=== PATIENT | female | born 1980 | race Caucasian/White ===

== ENCOUNTER 2019-03-25 09:18 | Emergency (ER) | payer BC, MEDICAID ==
[2019-03-25] MEDS ORDERED: PROMETHAZINE HCL INJ 25 MG/1 ML VIAL ONE (09:37)
[2019-03-25] MEDS ORDERED: NORMAL SALINE 1000 ML 1,000 ML IV ONE (09:40)
[2019-03-25] MEDS ORDERED: METOCLOPRAMIDE HCL INJ/PF 10 MG/2 ML SDV IV ONE (09:40)
[2019-03-25] MEDS ORDERED: FAMOTIDINE INJ/PF 20 MG/2 ML SDV IV ONE (09:41)
--- NOTE | 2019-03-25 10:18 | ER Document Report ---
Entered by FATUMA WALKER SCRIBE 03/25/19 0941 Acting as scribe for:CITLALI CHAND MD ED GI/ - General Chief Complaint: Vomiting Stated Complaint: VOMITING Time Seen by Provider: 03/25/19 09:33 Primary Care Provider: [facility] [Provider Group] - Follow up as needed GRETA MICHELLE MD [NO LOCAL MD] - Follow up as needed Mode of Arrival: Ambulatory Information source: Patient Notes: This 38-year-old female patient comes emergency room complaining of nausea vomiting with some diarrhea that started this morning. She has been nauseous that taking Diclegis, but states the nausea is much worse than usual today. She has been having dry heaves with bilious vomiting. She also does complain of some abdominal pain. She is supposed to be about 23 weeks . The patient is on chronic pain management for neck and back pain, taking morphine sulfate 15 mg every 4 hours, she has not been able to keep her pain me dication down. - Related Data Allergies/Adverse Reactions: No Known Allergies Allergy (Unverified 03/25/19 09:24) Past Medical History - General Information source: Patient - Social History Smoking Status: Former Smoker Cigarette use (# per day): No Frequency of alcohol use: None Drug Abuse: None Lives with: Family Family History: Reviewed & Not Pertinent Review of Systems - Review of Systems Constitutional: No symptoms reported EENT: No symptoms reported Cardiovascular: No symptoms reported Respiratory: No symptoms reported Gastrointestinal: See HPI, Diarrhea, Nausea, Vomiting Genitourinary: No symptoms reported Female Genitourinary: See HPI, Musculoskeletal: No symptoms reported Skin: No symptoms reported Hematologic/Lymphatic: No symptoms reported Neurological/Psychological: No symptoms reported -: Yes All other systems reviewed and negative Physical Exam - Vital signs Vitals: Pulse BP Pulse Ox 68 134/87 H 100 03/25/19 09:21 03/25/19 09:21 03/25/19 09:21 - Notes Notes: Physical Exam: General: Alert, appears uncomfortable, dry heaving. HEENT: Normocephalic. Atraumatic. PERRL. Extraocular movements intact. Oropharynx clear. Neck: Supple. Non-tender. Respiratory: No respiratory distress. Clear and equal breath sounds bilaterally. Cardiovascular: Regular rate and rhythm. Abdominal: Dry heaving. Gravid uterus. No distension. Normal Bowel Sounds. Patient is rolling about, trying to retch, and I am unable to adequately examine her abdomen at this time. Back: Grossly normal appearing. Extremities: Moves all four extremities. Upper extremities: Normal inspection. Normal ROM. Lower extremities: Normal inspection. No edema. Normal ROM. Neurological: Normal cognition. AAOx4. Normal speech. Psychological: Normal affect. Normal Mood. Skin: Warm. Dry. Normal color. Course - Re-evaluation Re-evalutation: 03/25/19 13:20 After a small dose of morphine, and multiple anti-medics, the patient is now resting comfortably with her nausea under control. A repeat abdominal exam at this time shows her to have epigastric tenderness. There is no right upper quadrant or left upper quadrant tenderness. There is no tenderness guarding or rebound to palpate into the left and right lower quadrant regions. A gravid uterus is palpated. 03/25/19 13:57 Patient was sleeping soundly after the GI cocktail. Repeat exam shows epigastrium is much less tender than it was before the GI cocktail. - Vital Signs Vital signs: Temp Pulse Resp BP Pulse Ox 97.2 F 68 134/87 H 100 03/25/19 09:33 03/25/19 09:21 03/25/19 09:21 03/25/19 09:21 - Laboratory Result Diagrams: 03/25/19 09:33 03/25/19 09:33 Laboratory results interpreted by me: 03/25/19 03/25/19 03/25/19 09:33 09:33 09:33 WBC 16.5 H Hgb 10.5 L Hct 32.3 L MCV 70 L MCH 22.6 L RDW 14.8 H Absolute Neutrophils 12.5 H Sodium 136.5 L Potassium 3.3 L Carbon Dioxide 21 L BUN 6 L Creatinine 0.51 L Glucose 129 H Magnesium 1.4 L Lipase 394.6 H Urine Ketones 03/25/19 10:28 WBC Hgb Hct MCV MCH RDW Absolute Neutrophils Sodium Potassium Carbon Dioxide BUN Creatinine Glucose Magnesium Lipase Urine Ketones TRACE H Discharge - Discharge Clinical Impression: Nausea, vomiting and diarrhea, 23 weeks gestation of , Esophagitis Condition: Stable Disposition: HOME, SELF-CARE Additional Instructions: Nausea or Vomiting, Nonspecific Vomiting (or nausea without vomiting) can be caused by many different problems. Of course, it can mean that something's wrong with the stomach, such as "stomach flu," ulcers, or inflammation. But it can also be a symptom of a problem that has nothing to do with the stomach or intestines. Vomiting is common with severe headaches, earaches, and tonsillitis. We see it with pneumonia or heart attacks. Drugs can cause nausea. Many abdominal problems cause vomiting; for example, gallstones, kidney stones, pancreatitis, and intestinal obstruction (blocked bowels). In most cases, curing the vomiting depends on fixing the problem that caused it. For temporary relief, we may use an anti-nausea medicine. For home use, we can prescribe suppositories, chewable pills, pills that dissolve in the mouth, or liquid anti-nausea drugs. If the vomiting seems to be caused by a problem in the stomach, acid-suppressing drugs may be prescribed as well. It's important to avoid dehydration. Sip clear liquids. Take increasing amounts of fluid over the first 24 hours. Then start small amounts of bland foods (such as dry toast, applesauce, mashed potato). Avoid aspirin, tobacco, and alcohol. Gradually resume your usual diet. If the vomiting worsens, if the problem that's making you vomit worsens, or if there's evidence of bleeding in the stomach (such as black, tarry stool, bloody or black vomit, or lightheadedness), you should return immediately. Call your doctor if you aren't improved in 24 to 36 hours. I personally performed the services described in the documentation, reviewed and edited the documentation which was dictated to the scribe in my presence, and it accurately records my words and actions. Add the Phenergan tablets to your Diclegis to help control your nauseousness. Drink small sips of cool clear liquids today. Take antacids every few hours to reduce the acid levels in your stomach. Follow-up with your [employer] doctor if not improving. RETURN TO THE EMERGENCY ROOM IF ANY NEW OR WORSENING SYMPTOMS. Prescriptions: Promethazine HCl [Phenergan 25 mg Tablet] 25 - 50 mg PO ASDIR PRN #15 tablet PRN Reason: Referrals: GRETA MICHELLE MD [NO LOCAL MD] - Follow up as needed [facility] [Provider Group] - Follow up as needed Scribe Attestation: 03/25/19 10:19 I personally performed the services described in the documentation, reviewed and edited the documentation which was dictated to the scribe in my presence, and it accurately records my words and actions. I personally performed the services described in the documentation, reviewed and edited the documentation which was dictated to the scribe in my presence, and it accurately records my words and actions.
[2019-03-25] MEDS ORDERED: DEXTROSE 5%-LACTATED RINGERS 1,000 ML IV ONE (10:20)
[2019-03-25 10:36] LABS: ABSOLUTE BASOPHILS # (AUTO) 0.1 10^3/uL (0.0-0.2); ABSOLUTE EOSINOPHILS # (AUTO) 0.1 10^3/uL (0.0-0.6); ABSOLUTE LYMPHOCYTES (AUTO) 3.1 10^3/uL (0.5-4.7); ABSOLUTE MONOCYTES (AUTO) 0.6 10^3/uL (0.1-1.4); ABSOLUTE NEUT (AUTO) 12.5 10^3/uL (1.7-8.2); BASOPHILS % (AUTO) 0.4 % (0-2); EOSINOPHILS % (AUTO) 0.9 % (0-6); HEMATOCRIT 32.3 % (36.0-47.0); HEMOGLOBIN 10.5 g/dL (12.0-15.5); LYMPHOCYTES % (AUTO) 18.6 % (13-45); MEAN CORPUSCULAR HEMOGLOBIN 22.6 pg (27.0-33.4); MEAN CORPUSCULAR HGB CONC 32.4 g/dL (32.0-36.0); MEAN CORPUSCULAR VOLUME 70 fl (80-97); MONOCYTES % (AUTO) 3.9 % (3-13); PLATELET COUNT 269 10^3/uL (150-450); RED BLOOD COUNT 4.63 10^6/uL (3.72-5.28); RED CELL DISTRIBUTION WIDTH 14.8 % (11.5-14.0); SEGMENTED NEUTROPHILS % (AUTO) 76.2 % (42-78); TOTAL CELLS COUNTED % (AUTO) 100 %; WHITE BLOOD COUNT 16.5 10^3/uL (4.0-10.5)
[2019-03-25 10:41] LABS: ALBUMIN 3.8 g/dL (3.5-5.0); ALKALINE PHOSPHATASE 83 U/L (38-126); ANION GAP 11 (5-19); ASPARTATE AMINO TRANSFERASE 24 U/L (14-36); BILIRUBIN,DIRECT 0.2 mg/dL (0.0-0.4); BILIRUBIN,TOTAL 0.3 mg/dL (0.2-1.3); BLOOD UREA NITROGEN 6 mg/dL (7-20); CALCIUM 9.7 mg/dL (8.4-10.2); CARBON DIOXIDE 21 mmol/L (22-30); CHLORIDE 105 mmol/L (98-107); GLUCOSE 129 mg/dL (75-110); POTASSIUM 3.3 mmol/L (3.6-5.0); TOTAL PROTEIN 6.6 g/dL (6.3-8.2)
[2019-03-25 11:01] LABS: APPEARANCE,URINE SLIGHTLY-CLOUDY; BILIRUBIN,URINE NEGATIVE (NEGATIVE); COLOR,URINE YELLOW; GLUCOSE, URINE NEGATIVE (NEGATIVE); KETONES,URINE TRACE mg/dL (NEGATIVE); LEUKOCYTE ESTERASE,URINE NEGATIVE (NEGATIVE); NITRITE,URINE NEGATIVE (NEGATIVE); PROTEIN,URINE NEGATIVE (NEGATIVE); URINE SPECIFIC GRAVITY 1.011; UROBILINOGEN,URINE NEGATIVE mg/dL (<2.0)
[2019-03-25] MEDS ORDERED: MORPHINE SULFATE 10 MG/ML INJ IV ONE (11:25)
[2019-03-25] MEDS ORDERED: PROMETHAZINE HCL INJ 25 MG/1 ML VIAL IV ONE (11:52)
[2019-03-25] MEDS ORDERED: ONDANSETRON HCL INJ/PF 4 MG/2 ML SDV IV ONE (11:52)
[2019-03-25] MEDS ORDERED: MAG HYDROX/AL HYDROX/SIMETH SUSP 30 ML UDCUP PO ONE (13:18)
[2019-03-25] MEDS ORDERED: LIDOCAINE 2% VISCOUS SOLN 20 ML UDCUP PO ONE (13:19)
[2019-03-25 14:46] VITALS: BP 128/78
== END 2019-03-25 14:35 | disposition home or self-care (01) ==
LOC: ER 09:18
DX: O21.2 Late vomiting of pregnancy (principal); Z79.899 Other long term (current) drug therapy; O99.612 Diseases of the digestive system complicating pregnancy, second trimester; K20.9 Esophagitis, unspecified; O26.892 Other specified pregnancy related conditions, second trimester; R19.7 Diarrhea, unspecified; R10.816 Epigastric abdominal tenderness; R10.9 Unspecified abdominal pain; O99.352 Diseases of the nervous system complicating pregnancy, second trimester; M54.2 Cervicalgia; M54.9 Dorsalgia, unspecified; G89.29 Other chronic pain; Z79.891 Long term (current) use of opiate analgesic; Z3A.23 23 weeks gestation of pregnancy; Z87.891 Personal history of nicotine dependence
CPT/HCPCS: 36415; 83690; 83735; 85025; 80053; 81001; J3490 ×2; J2765; J2270; J2550; J2405; J7121; J7030; S0028; 96361; 96374; 96375; 99284

== ENCOUNTER 2019-04-29 20:00 | Inpatient (IN) | payer MEDICAID ==
[2019-04-29] MEDS ORDERED: PROMETHAZINE HCL INJ 25 MG/1 ML VIAL IV ONE (20:23)
[2019-04-29] MEDS ORDERED: METOCLOPRAMIDE HCL INJ/PF 10 MG/2 ML SDV IV ONE (20:23)
[2019-04-29] MEDS ORDERED: PROMETHAZINE HCL INJ 25 MG/1 ML VIAL ONE (20:24)
[2019-04-29] MEDS ORDERED: METOCLOPRAMIDE HCL INJ/PF 10 MG/2 ML SDV ONE (20:25)
[2019-04-29] MEDS ORDERED: ONDANSETRON HCL INJ/PF 4 MG/2 ML SDV ONE (22:16)
[2019-04-29 22:24] LABS: ABSOLUTE LYMPHOCYTES (AUTO) 1.9 10^3/uL (0.5-4.7); ABSOLUTE MONOCYTES (AUTO) 0.5 10^3/uL (0.1-1.4); ABSOLUTE NEUT (AUTO) 14.5 10^3/uL (1.7-8.2); BASOPHILS % (AUTO) 0.2 % (0-2); EOSINOPHILS % (AUTO) 0.1 % (0-6); HEMATOCRIT 28.3 % (36.0-47.0); HEMOGLOBIN 9.3 g/dL (12.0-15.5); LYMPHOCYTES % (AUTO) 11.3 % (13-45); MEAN CORPUSCULAR HGB CONC 32.9 g/dL (32.0-36.0); MEAN CORPUSCULAR VOLUME 70 fl (80-97); MONOCYTES % (AUTO) 2.9 % (3-13); PLATELET COUNT 237 10^3/uL (150-450); RED BLOOD COUNT 4.05 10^6/uL (3.72-5.28); RED CELL DISTRIBUTION WIDTH 14.5 % (11.5-14.0); SEGMENTED NEUTROPHILS % (AUTO) 85.5 % (42-78); TOTAL CELLS COUNTED % (AUTO) 100 %
[2019-04-29 22:42] LABS: ALBUMIN 3.4 g/dL (3.5-5.0); ALKALINE PHOSPHATASE 93 U/L (38-126); AMYLASE 55 U/L (30-110); ANION GAP 10 (5-19); ASPARTATE AMINO TRANSFERASE 19 U/L (14-36); BILIRUBIN,DIRECT 0.1 mg/dL (0.0-0.4); BILIRUBIN,TOTAL 0.3 mg/dL (0.2-1.3); BLOOD UREA NITROGEN 5 mg/dL (7-20); CARBON DIOXIDE 22 mmol/L (22-30); CHLORIDE 105 mmol/L (98-107); GLUCOSE 104 mg/dL (75-110); POTASSIUM 3.1 mmol/L (3.6-5.0)
[2019-04-29 22:55] LABS: APPEARANCE,URINE SLIGHTLY-CLOUDY; BILIRUBIN,URINE NEGATIVE (NEGATIVE); COLOR,URINE YELLOW; GLUCOSE, URINE NEGATIVE (NEGATIVE); KETONES,URINE 80 mg/dL (NEGATIVE); LEUKOCYTE ESTERASE,URINE NEGATIVE (NEGATIVE); NITRITE,URINE NEGATIVE (NEGATIVE); PROTEIN,URINE 100 mg/dL (NEGATIVE); URINE SPECIFIC GRAVITY 1.017; UROBILINOGEN,URINE NEGATIVE mg/dL (<2.0)
[2019-04-29] MEDS ORDERED: NORMAL SALINE 1000 ML 1,000 ML with POTASSIUM CHLORIDE 20 MEQ, MAGNESIUM SULFATE 8 MEQ,... IV ONE ×5 (23:00)
[2019-04-29] MEDS ORDERED: ONDANSETRON HCL INJ/PF 4 MG/2 ML SDV IV ONE (23:00)
[2019-04-29 23:14] LABS: URINE AMPHETAMINES SCREEN NEGATIVE; URINE BARBITURATES SCREEN NEGATIVE; URINE BENZODIAZEPINES SCREEN NEGATIVE; URINE COCAINE SCREEN NEGATIVE; URINE METHADONE SCREEN NEGATIVE; URINE PHENCYCLIDINE SCREEN NEGATIVE
[2019-04-29 23:18] LABS: URINE MARIJUANA (THC) SCREEN UNCONFIRMED POSITIVE
[2019-04-30] MEDS ORDERED: PROMETHAZINE HCL INJ 25 MG/1 ML VIAL ONE (04:44)
[2019-04-30] MEDS ORDERED: PROMETHAZINE HCL INJ 25 MG/1 ML VIAL IV ONE (05:10)
[2019-04-30] MEDS ORDERED: ONDANSETRON 4 MG TAB.RAPDIS ONE (07:25)
[2019-04-30] MEDS ORDERED: ACETAMINOPHEN 1,000 MG/100 ML RTUPB IV PRN (07:29)
--- NOTE | 2019-04-30 07:43 | Admission Physical ---
Datetime Report Generated by CPN: 04/30/2019 07:43 CURRENT ADMISSION Chief Complaint: Illness Indication for Induction: Not Applicable Admit Impression : , Intrauterine ; Observation/Evaluation Admit Plan: Admit to Unit; Observation/Evaluation Admit Plan- Other: antiemetics, iv fluids and antipyretics ALLERGIES Medication Allergies: No Medication Allergies: No Known Allergies (03/25/2019) Latex: No Latex Allergies OBSTETRICAL HISTORY EDC: 07/23/2019 00:00 : 5 Para: 4 Term: 4 : 0 SAB: 0 IAB: 0 Ectopic: 0 Livin Cesareans: 2 VBACs: 0 Multiple Births: 0 Obstetrical History Comments: G1- 1999 at 38 weeks, 5lbs 11oz female G2- 2003 at 40 weeks, 8lbs 10oz female GDM G3- 2010 at 37 weeks, 6lbs 8oz male, placenta previa G4- 2015 C-sections at 38 weeks, 6lbs 13oz male G5- current PHYSICAL EXAM General: Normal HEENT: Normal Neurologic: Normal Thyroid: Normal Heart: Normal Lungs: Normal Breast: Normal Back: Normal Abdomen: Normal Genitourinary Exam: Normal Extremities: Normal DTRs: Normal Pelvic Type: Adequate Vital Signs: Reviewed; Within Normal Limits FETUS A EGA: 28.0 Decelerations: None FHR Category: Category I Admit Comment: age appropriate NST INFORMED CONSENT Signature: with User ID: [email or web address]
[2019-04-30] MEDS ORDERED: ACETAMINOPHEN 1,000 MG/100 ML RTUPB IV ONE (08:01)
[2019-04-30 08:08] LABS: HEMATOCRIT 26.8 % (36.0-47.0); HEMOGLOBIN 8.7 g/dL (12.0-15.5); MEAN CORPUSCULAR HEMOGLOBIN 22.6 pg (27.0-33.4); MEAN CORPUSCULAR HGB CONC 32.4 g/dL (32.0-36.0); MEAN CORPUSCULAR VOLUME 70 fl (80-97); PLATELET COUNT 223 10^3/uL (150-450); RED BLOOD COUNT 3.86 10^6/uL (3.72-5.28); RED CELL DISTRIBUTION WIDTH 14.2 % (11.5-14.0); WHITE BLOOD COUNT 15.2 10^3/uL (4.0-10.5)
[2019-04-30] MEDS ORDERED: METOCLOPRAMIDE HCL INJ/PF 10 MG/2 ML SDV ONE (08:11)
[2019-04-30] MEDS: DEXTROSE 5%-LACTATED RINGERS 1,000 ML IV PRN ×2 (08:23→16:26)
[2019-04-30] MEDS: PROMETHAZINE HCL INJ 25 MG/1 ML VIAL IV PRN ×4 (10:13→23:40)
[2019-04-30] MEDS ORDERED: ZOLPIDEM TARTRATE 5 MG TABLET PO ONE (11:10)
[2019-04-30] MEDS ORDERED: DEXAMETHASONE SOD PHOSPHATE INJ 4 MG/1 ML VIAL IV ONE ×2 (12:00→15:30)
[2019-04-30] MEDS: METOCLOPRAMIDE HCL INJ/PF 10 MG/2 ML SDV IV SCH ×3 (13:03→23:40)
[2019-04-30] MEDS ORDERED: IRON SUCROSE COMPLEX INJ/PF 100 MG/5 ML SDV IV ONE (15:00)
[2019-04-30] MEDS: ONDANSETRON 4 MG TAB.RAPDIS PO PRN (16:29)
[2019-04-30] MEDS ORDERED: LORAZEPAM INJ 2 MG/1 ML VIAL IV ONE (22:45)
[2019-04-30] MEDS: ACETAMINOPHEN 325 MG TABLET PO PRN (23:40)
[2019-05-01] MEDS: DEXTROSE 5%-LACTATED RINGERS 1,000 ML IV PRN (00:45)
[2019-05-01] MEDS: PROMETHAZINE HCL INJ 25 MG/1 ML VIAL IV PRN ×4 (04:07→18:55)
[2019-05-01] MEDS: METOCLOPRAMIDE HCL INJ/PF 10 MG/2 ML SDV IV SCH ×3 (05:14→20:10)
[2019-05-01] MEDS: ACETAMINOPHEN 325 MG TABLET PO PRN (05:20)
[2019-05-01 07:07] LABS: HEMATOCRIT 23.8 % (36.0-47.0); MEAN CORPUSCULAR HEMOGLOBIN 22.9 pg (27.0-33.4); MEAN CORPUSCULAR HGB CONC 33.2 g/dL (32.0-36.0); MEAN CORPUSCULAR VOLUME 69 fl (80-97); PLATELET COUNT 206 10^3/uL (150-450); RED BLOOD COUNT 3.44 10^6/uL (3.72-5.28); RED CELL DISTRIBUTION WIDTH 14.2 % (11.5-14.0); WHITE BLOOD COUNT 16.2 10^3/uL (4.0-10.5)
[2019-05-01 07:16] LABS: HEMOGLOBIN 7.9 g/dL (12.0-15.5)
[2019-05-01 07:29] LABS: ALBUMIN 2.9 g/dL (3.5-5.0); ALKALINE PHOSPHATASE 86 U/L (38-126); AMYLASE 91 U/L (30-110); ANION GAP 9 (5-19); ASPARTATE AMINO TRANSFERASE 30 U/L (14-36); BILIRUBIN,DIRECT 0.1 mg/dL (0.0-0.4); BILIRUBIN,TOTAL 0.4 mg/dL (0.2-1.3); BLOOD UREA NITROGEN 2 mg/dL (7-20); CALCIUM 8.5 mg/dL (8.4-10.2); CARBON DIOXIDE 21 mmol/L (22-30); CHLORIDE 108 mmol/L (98-107); GLUCOSE 92 mg/dL (75-110); TOTAL PROTEIN 5.4 g/dL (6.3-8.2)
[2019-05-01 07:38] LABS: POTASSIUM 2.9 mmol/L (3.6-5.0)
[2019-05-01 07:39] LABS: FREE T3 2.16 pg/mL (2.77-5.27); FREE T4 (FREE THYROXINE) 0.9 ng/dL (0.78-2.19)
[2019-05-01 07:53] LABS: THYROID STIMULATING HORMONE 1.79 uIU/mL (0.47-4.68)
[2019-05-01 09:01] LABS: ABSOLUTE RETICS # 0.066 10^6/uL (0.028-0.122); RETICULOCYTE COUNT (AUTO) 1.87 % (0.66-2.85)
[2019-05-01 10:10] LABS: FOLATE 8.35 ng/mL (>2.76)
--- NOTE | 2019-05-01 11:43 | RADIOLOGY REPORT (SQ) ---
EXAM DESCRIPTION: U/S ABDOMEN LIMITED W/O DOP COMPLETED DATE/TIME: 05/01/2019 11:25 am REASON FOR STUDY: vomiting,Right Upper quadrant/gallbladder out? COMPARISON: None. TECHNIQUE: Dynamic and static grayscale images acquired of the abdomen and recorded on PACS. Additio trixie selected color Doppler and spectral images recorded. LIMITATIONS: None. FINDINGS: PANCREAS: No masses. Visualized pancreatic duct normal caliber. LIVER: No masses. Echotexture normal. LIVER VASCULATURE: Normal directional flow of the main portal vein and hepatic veins. GALLBLADDER: Surgically absent. ULTRASOUND-DETECTED TAMAYO'S SIGN: Negative. INTRAHEPATIC DUCTS AND COMMON DUCT: CBD and intrahepatic ducts normal caliber. No filling defects. INFERIOR VENA CAVA: Normal flow. AORTA: No aneurysm. RIGHT KIDNEY: Normal size. Normal echogenicity. No solid or suspicious masses. No hydronephrosis. No calcifications. PERITONEAL AND RIGHT PLEURAL SPACE: No ascites or effusions. OTHER: Gravid uterus partially imaged. IMPRESSION: 1. Postoperative findings of cholecystectomy. No ultrasound abnormality of the right up per quadrant to explain right upper quadrant pain or vomiting. Consider CT or MRI to further evaluat e. 2. Gravid uterus partially imaged. TECHNICAL DOCUMENTATION: JOB ID: [id number] [employer]- All Rights Reserved Reading location - IP/workstation name: [email or web address]
[2019-05-01] MEDS: ONDANSETRON 4 MG TAB.RAPDIS PO PRN (11:54)
[2019-05-01] MEDS: POTASSIUM CHLORIDE 20 MEQ/50 ML RTU IV SCH ×2 (12:14→14:00)
[2019-05-01] MEDS ORDERED: ACETAMINOPHEN 1,000 MG/100 ML RTUPB IV PRN (12:31)
[2019-05-01] MEDS ORDERED: NORMAL SALINE 1000 ML 1,000 ML with THIAMINE HCL 100 MG, MVI, ADULT NO.1 WITH VIT K 10 ... IV ONE ×4 (13:00)
--- NOTE | 2019-05-01 16:18 | PDOC CONSULTATION ---
Consultation Consult Date: 05/01/19 Provider Consulted: CHITO LITTLEJOHN Consult reason:: mildly elevated lipase with abdominal pains ,nausea & vomiting History of Present Illness Admission Date/PCP: 04/30/19 07:25 KIRBY DAVIS DO Patient complains of: nausea and vomiting History of Present Illness: AKIL SMITH is a 38 year old female who is known to have 28 weeks of and known reflux has been having nausea,vomiting with abdominal pains past few days. Had history of laparoscopic cholecystectomy at age 16. She was admitted yesterday for intractable nausea vomiting and abdominal pains. Ultrasound of the gallbladder area showed absent gallbladder and the pancreas was not visualized. She is getting Reglan IV without any improvement of her na usea and vomiting. Patient claims that she can feel gastric acid in her mouth which may make her more nauseated and makes her vomit. Denies any fever no chills. Past Surgical History Past Surgical History: Reports: Section, Cholecystectomy, Orthopedic Surgery - Neck surgery X2 Social History Smoking Status: Unknown if Ever Smoked Family History Family History: Reviewed & Not Pertinent Parental Family History Reviewed: Yes Children Family History Reviewed: No Sibling(s) Family History Reviewed.: No Medication/Allergy Home Medications: Doxylamine Succinate/Vit B6 [Diclegis Dr 10-10 mg Tablet] 1 tab PO ASDIR PRN 04/30/19 Escitalopram Oxalate [Lexapro] 20 mg PO QHS 04/30/19 Promethazine HCl [Phenergan 25 mg Tablet] 25 mg PO Q6HP PRN 04/30/19 Allergies/Adverse Reactions: No Known Allergies Allergy (Unverified 03/25/19 09:24) Review of Systems Constitutional: PRESENT: as per HPI Gastrointestinal: PRESENT: abdominal pain, heartburn, nausea, vomiting Physical Exam Vital Signs: Temp Pulse Resp BP Pulse Ox 98.4 F 75 16 114/58 L 99 05/01/19 15:30 05/01/19 15:30 05/01/19 15:30 05/01/19 15:30 05/01/19 15:30 Intake & Output 04/30/19 05/01/19 05/02/19 06:59 06:59 06:59 Intake Total 2000 1044 Output Total 1200 1050 Balance 800 -6 Weight 79.4 kg General appearance: PRESENT: mild distress Head exam: PRESENT: atraumatic Eye exam: PRESENT: conjunctiva pink Mouth exam: PRESENT: dry mucosa Neck exam: PRESENT: full ROM Respiratory exam: PRESENT: clear to auscultation rosa Cardiovascular exam: PRESENT: RRR Pulses: PRESENT: normal radial pulses Vascular exam: PRESENT: normal capillary refill GI/Abdominal exam: PRESENT: soft, tenderness - mild epigastric tenderness Rectal exam: PRESENT: deferred Extremities exam: PRESENT: full ROM Musculoskeletal exam: PRESENT: full ROM Neurological exam: PRESENT: alert, oriented to person, oriented to place, oriented to time, oriented to situation Psychiatric exam: PRESENT: appropriate affect Skin exam: PRESENT: normal color, warm Results Laboratory Results: 05/01/19 06:02 05/01/19 06:02 04/29/19 05/01/19 05/01/19 22:17 06:02 06:02 WBC 16.2 H RBC 3.44 L Hgb 7.9 L Hct 23.8 L MCV 69 L MCH 22.9 L MCHC 33.2 RDW 14.2 H Plt Count 206 Retic Count (auto) Sodium 137.5 Potassium 2.9 L* Chloride 108 H Carbon Dioxide 21 L Anion Gap 9 BUN 2 L Creatinine 0.46 L Est GFR ( Amer) > 60 Glucose 92 Calcium 8.5 Iron 52.0 TIBC 459 H % Saturation 11 Ferritin 12.00 Total Bilirubin 0.4 AST 30 Alkaline Phosphatase 86 Total Protein 5.4 L Albumin 2.9 L Amylase 91 Lipase 361.3 H Vitamin B12 192.0 L Folate 8.35 TSH Free T4 Free T3 pg/mL 05/01/19 05/01/19 06:02 06:02 WBC RBC Hgb Hct MCV MCH MCHC RDW Plt Count Retic Count (auto) 1.87 Sodium Potassium Chloride Carbon Dioxide Anion Gap BUN Creatinine Est GFR ( Amer) Glucose Calcium Iron TIBC % Saturation Ferritin Total Bilirubin AST Alkaline Phosphatase Total Protein Albumin Amylase Lipase Vitamin B12 Folate TSH 1.79 Free T4 0.90 Free T3 pg/mL 2.16 L Impressions: Abdomen Ultrasound 05/01/19 08:30 IMPRESSION: 1. Postoperative findings of cholecystectomy. No ultrasound abnormality of the right upper quadrant to explain right upper quadrant pain or vomiting. Consider CT or MRI to further evaluate. 2. Gravid uterus partially imaged. Assessment & Plan - Diagnosis (1) Cannabinoid hyperemesis syndrome Is this a current diagnosis for this admission?: Yes (2) Elevated lipase Is this a current diagnosis for this admission?: Yes - Time Time Spent: 30 to 50 Minutes - Inpatient Certification Medical Necessity: Need Close Monitoring Due to Risk of Patient Decompensation, Need For IV Fluids - Plan Summary Plan Summary: 38-year-old female 4 and 28 weeks with persistent nausea vomiting abdominal pains and reflux. She is getting IV Reglan and Phenergan without much help. She still can feel the gastric acid in her mouth gets make her vomit more. The fact that her gallbladder is already removed excludes gallstone pancreatitis as the causation of patient's symptomatology. Her lipase is mildly elevated which I doubt is causing pancreatitis. Her symptoms likely combination of marijuana reaction with history of reflux. May be related to her but usually this is more noticeable first trimester with the nausea and vomiting. I would add Protonix pump inhibitor if it is not dangerous to the fetus. She does not have any surgical abdomen at this time. We will follow her closely with you.
[2019-05-01] MEDS: FAMOTIDINE INJ/PF 20 MG/2 ML SDV IV SCH (17:00)
--- NOTE | 2019-05-01 17:13 | PDOC PROGRESS REPORT ---
Subjective Progress Note for:: 05/01/19 Subjective:: nausea, vomiting. 28wks preg, + flatus, + voiding, +GERD Reason For Visit: Physical Exam - Physical Exam Vital Signs: Temp Pulse Resp BP Pulse Ox 98.4 F 75 16 114/58 L 99 05/01/19 15:30 05/01/19 15:30 05/01/19 15:30 05/01/19 15:30 05/01/19 15:30 Intake & Output 04/30/19 05/01/19 05/02/19 06:59 06:59 06:59 Intake Total 1999 1194 Output Total 1200 2150 Balance 800 -956 Weight 79.4 kg General appearance: PRESENT: no acute distress, well-developed, well-nourished Neck exam: PRESENT: full ROM. ABSENT: carotid bruit, JVD, lymphadenopathy, t hyromegaly Respiratory exam: PRESENT: clear to auscultation rosa, symmetrical, unlabored Cardiovascular exam: PRESENT: RRR. ABSENT: diastolic murmur, rubs, systolic murmur Pulses: PRESENT: normal dorsalis pedis pul, +2 pedal pulses bilateral GI/Abdominal exam: PRESENT: normal bowel sounds, soft. ABSENT: distended, guarding, mass, organolmegaly, rebound, tenderness Rectal exam: PRESENT: deferred Extremities exam: PRESENT: full ROM. ABSENT: calf tenderness, clubbing, pedal edema Neurological exam: PRESENT: alert, awake, oriented to person, oriented to place, oriented to time, oriented to situation, CN II-XII grossly intact. ABSENT: motor sensory deficit Skin exam: PRESENT: dry, intact, warm. ABSENT: cyanosis, rash Result Laboratory Results: 05/01/19 06:02 05/01/19 06:02 04/29/19 05/01/19 05/01/19 22:17 06:02 06:02 WBC 16.2 H RBC 3.44 L Hgb 7.9 L Hct 23.8 L MCV 69 L MCH 22.9 L MCHC 33.2 RDW 14.2 H Plt Count 206 Retic Count (auto) Sodium 137.5 Potassium 2.9 L* Chloride 108 H Carbon Dioxide 21 L Anion Gap 9 BUN 2 L Creatinine 0.46 L Est GFR ( Amer) > 60 Glucose 92 Calcium 8.5 Iron 52.0 TIBC 459 H % Saturation 11 Ferritin 12.00 Total Bilirubin 0.4 AST 30 Alkaline Phosphatase 86 Total Protein 5.4 L Albumin 2.9 L Amylase 91 Lipase 361.3 H Vitamin B12 192.0 L Folate 8.35 TSH Free T4 Free T3 pg/mL 05/01/19 05/01/19 06:02 06:02 WBC RBC Hgb Hct MCV MCH MCHC RDW Plt Count Retic Count (auto) 1.87 Sodium Potassium Chloride Carbon Dioxide Anion Gap BUN Creatinine Est GFR ( Amer) Glucose Calcium Iron TIBC % Saturation Ferritin Total Bilirubin AST Alkaline Phosphatase Total Protein Albumin Amylase Lipase Vitamin B12 Folate TSH 1.79 Free T4 0.90 Free T3 pg/mL 2.16 L Impressions: Abdomen Ultrasound 05/01/19 08:30 IMPRESSION: 1. Postoperative findings of cholecystectomy. No ultrasound abnormality of the right upper quadrant to explain right upper quadrant pain or vomiting. Consider CT or MRI to further evaluate. 2. Gravid uterus partially imaged. Assessment & Plan - Diagnosis (1) Cannabinoid hyperemesis syndrome Is this a current diagnosis for this admission?: Yes Plan: reviewed meds. GI cocktail. Reviewed need to be NPO for now. Decadron/Benadryl. Reviewed need to stop THC. H2 diana added. Consider PPI. GI cocktain prn (2) Elevated lipase Is this a current diagnosis for this admission?: Yes Plan: Surgicalist consult ordered. Pt reports that she has had cholecystectomy. RUQ US ordered. (3) Opioid dependence Qualifiers: Substance use status: with unspecified opioid-induced disorder Qualified Code(s): F11.29 - Opioid dependence with unspecified opioid-induced disorder Is this a current diagnosis for this admission?: Yes Plan: pt reports that Dr. Moreno at [facility] gives her 15mg of morphine (1-2 tabs) three times per day prn pain. She reports neck issues etc
[2019-05-01] MEDS ORDERED: MAG HYDROX/AL HYDROX/SIMETH SUSP 30 ML UDCUP PO ONE (17:30)
[2019-05-01] MEDS ORDERED: LIDOCAINE 2% VISCOUS SOLN 20 ML UDCUP PO ONE (17:30)
[2019-05-01] MEDS ORDERED: METOCLOPRAMIDE HCL ORAL SOLN 10 MG/10 ML UDCUP PO ONE (17:30)
[2019-05-01] MEDS ORDERED: DEXAMETHASONE SOD PHOSPHATE INJ 4 MG/1 ML VIAL IV ONE (18:00)
[2019-05-01] MEDS ORDERED: DEXAMETHASONE SOD PHOSPHATE INJ 4 MG/1 ML VIAL ONE (18:51)
[2019-05-01] MEDS: DIPHENHYDRAMINE HCL 50 MG/ML VIAL IV PRN (19:02)
[2019-05-02] MEDS: ONDANSETRON 4 MG TAB.RAPDIS PO PRN (00:25)
[2019-05-02] MEDS: ACETAMINOPHEN 325 MG TABLET PO PRN ×4 (00:25→21:50)
[2019-05-02] MEDS: DEXTROSE 5%-LACTATED RINGERS 1,000 ML IV PRN ×3 (00:28→22:16)
[2019-05-02] MEDS: METOCLOPRAMIDE HCL INJ/PF 10 MG/2 ML SDV IV SCH ×5 (01:28→23:52)
[2019-05-02] MEDS: DIPHENHYDRAMINE HCL 50 MG/ML VIAL IV PRN ×2 (01:29→22:16)
[2019-05-02] MEDS: FAMOTIDINE INJ/PF 20 MG/2 ML SDV IV SCH ×2 (06:10→17:51)
[2019-05-02] MEDS: PROMETHAZINE HCL INJ 25 MG/1 ML VIAL IV PRN ×4 (08:29→23:52)
[2019-05-02] MEDS ORDERED: METOCLOPRAMIDE HCL ORAL SOLN 10 MG/10 ML UDCUP PO ONE (09:00)
[2019-05-02] MEDS ORDERED: LIDOCAINE 2% VISCOUS SOLN 20 ML UDCUP PO ONE (09:00)
[2019-05-02] MEDS ORDERED: MAG HYDROX/AL HYDROX/SIMETH SUSP 30 ML UDCUP PO ONE (09:00)
[2019-05-02 09:15] LABS: ABSOLUTE LYMPHOCYTES (AUTO) 2.6 10^3/uL (0.5-4.7); ABSOLUTE MONOCYTES (AUTO) 0.9 10^3/uL (0.1-1.4); ABSOLUTE NEUT (AUTO) 10.9 10^3/uL (1.7-8.2); BASOPHILS % (AUTO) 0.3 % (0-2); EOSINOPHILS % (AUTO) 0.1 % (0-6); HEMATOCRIT 24.4 % (36.0-47.0); MEAN CORPUSCULAR HEMOGLOBIN 22.6 pg (27.0-33.4); MEAN CORPUSCULAR HGB CONC 32.7 g/dL (32.0-36.0); MEAN CORPUSCULAR VOLUME 69 fl (80-97); MONOCYTES % (AUTO) 5.9 % (3-13); PLATELET COUNT 190 10^3/uL (150-450); RED BLOOD COUNT 3.53 10^6/uL (3.72-5.28); RED CELL DISTRIBUTION WIDTH 14.5 % (11.5-14.0); SEGMENTED NEUTROPHILS % (AUTO) 75.7 % (42-78); TOTAL CELLS COUNTED % (AUTO) 100 %; WHITE BLOOD COUNT 14.4 10^3/uL (4.0-10.5)
[2019-05-02 09:32] LABS: ALBUMIN 2.9 g/dL (3.5-5.0); ALKALINE PHOSPHATASE 87 U/L (38-126); AMYLASE 37 U/L (30-110); ANION GAP 8 (5-19); ASPARTATE AMINO TRANSFERASE 24 U/L (14-36); BILIRUBIN,DIRECT 0.1 mg/dL (0.0-0.4); BILIRUBIN,TOTAL 0.3 mg/dL (0.2-1.3); BLOOD UREA NITROGEN 3 mg/dL (7-20); CALCIUM 8.3 mg/dL (8.4-10.2); CARBON DIOXIDE 20 mmol/L (22-30); CHLORIDE 109 mmol/L (98-107); GLUCOSE 100 mg/dL (75-110); TOTAL PROTEIN 5.4 g/dL (6.3-8.2)
[2019-05-02 09:37] LABS: POTASSIUM 2.9 mmol/L (3.6-5.0)
[2019-05-02] MEDS ORDERED: POTASSI CL 40 MEQ/D5-1/2NS 1L 40 MEQ/1,000 ML RTUINJ IV PRN (11:53)
[2019-05-02] MEDS: POTASSI CL 20 MEQ/50 ML RIDER 20 MEQ/50 ML RTUPB IV SCH ×2 (12:40→15:42)
[2019-05-02] MEDS: PANTOPRAZOLE SODIUM 40 MG TABLET.DR PO SCH (12:40)
--- NOTE | 2019-05-02 13:28 | PDOC PROGRESS REPORT ---
Subjective Progress Note for:: 05/02/19 Subjective:: Nausea and vomiting appears to have subsided but still has epigastric pains Reason For Visit: Physical Exam Vital Signs: Temp Pulse Resp BP Pulse Ox 98.1 F 89 14 126/71 H 99 05/02/19 10:57 05/02/19 10:57 05/02/19 10:57 05/02/19 10:57 05/02/19 10:57 Intake & Output 05/01/19 05/02/19 05/03/19 06:59 06:59 06:59 Intake Total 1999 1194 2010.2 Output Total 1200 2900 Balance 800 -1706 2010. Weight 79.4 kg 79.4 kg Exam: Abdomen is soft with mild tenderness in the epigastric area Results Laboratory Results: 05/02/19 09:01 05/02/19 09:01 05/02/19 05/02/19 05/02/19 09:01 09:01 09:01 WBC 14.4 H RBC 3.53 L Hgb 8.0 L Hct 24.4 L MCV 69 L MCH 22.6 L MCHC 32.7 RDW 14.5 H Plt Count 190 Seg Neutrophils % 75.7 Sodium 136.7 L Potassium 2.9 L* Chloride 109 H Carbon Dioxide 20 L Anion Gap 8 BUN 3 L Creatinine 0.43 L Est GFR ( Amer) > 60 Glucose 100 Calcium 8.3 L Magnesium 1.7 Total Bilirubin 0.3 AST 24 Alkaline Phosphatase 87 Total Protein 5.4 L Albumin 2.9 L Amylase 37 Lipase 36.7 Impressions: Abdomen Ultrasound 05/01/19 08:30 IMPRESSION: 1. Postoperative findings of cholecystectomy. No ultrasound abnormality of the right upper quadrant to explain right upper quadrant pain or vomiting. Consider CT or MRI to further evaluate. 2. Gravid uterus partially imaged. Assessment & Plan - Diagnosis (1) Cannabinoid hyperemesis syndrome Is this a current diagnosis for this admission?: Yes (2) Elevated lipase Is this a current diagnosis for this admission?: Yes - Time Time Spent with patient: 15-24 minutes - Inpatient Certification Medical Necessity: Need For IV Fluids - Plan Summary Plan Summary: Her potassium remains low when she needed further potassium supplement. If her epigastric pains persist she may be a candidate for upper endoscopy We will continue to follow her with you.
--- NOTE | 2019-05-02 14:42 | PDOC PROGRESS REPORT ---
Subjective Progress Note for:: 05/02/19 Subjective:: Doing better today. Less nausea/vomiting. Reports vomiting once this am at 0300. Midline epigastric pain that is improved with Ice or GI cocktail. No blood in vomiting. Feels good FM. Reason For Visit: Physical Exam - Physical Exam Vital Signs: Temp Pulse Resp BP Pulse Ox 98.2 F 86 16 128/68 H 99 05/02/19 04:19 05/02/19 04:19 05/02/19 04:19 05/02/19 04:05/02/19 04:19 Intake & Output 05/01/19 05/02/19 05/03/19 06:59 06:59 06:59 Intake Total 1999 1194 2010.2 Output Total 1200 2900 Balance 800 -1706 2010.2 Weight 79.4 kg 79.4 kg General appearance: PRESENT: no acute distress, cooperative, obese Respiratory exam: PRESENT: clear to auscultation rosa Cardiovascular exam: PRESENT: RRR, +S1, +S2 Pulses: PRESENT: +2 pedal pulses bilateral GI/Abdominal exam: PRESENT: normal bowel sounds, soft, tenderness - Mildly tender epigastric region Psychiatric exam: PRESENT: normal mood Skin exam: PRESENT: dry, normal color, warm Result Laboratory Results: 05/02/19 09:01 05/02/19 09:01 05/02/19 05/02/19 05/02/19 09:01 09:01 09:01 WBC 14.4 H RBC 3.53 L Hgb 8.0 L Hct 24.4 L MCV 69 L MCH 22.6 L MCHC 32.7 RDW 14.5 H Plt Count 190 Seg Neutrophils % 75.7 Sodium 136.7 L Potassium 2.9 L* Chloride 109 H Carbon Dioxide 20 L Anion Gap 8 BUN 3 L Creatinine 0.43 L Est GFR ( Amer) > 60 Glucose 100 Calcium 8.3 L Magnesium 1.7 Total Bilirubin 0.3 AST 24 Alkaline Phosphatase 87 Total Protein 5.4 L Albumin 2.9 L Amylase 37 Lipase 36.7 Impressions: Abdomen Ultrasound 05/01/19 08:30 IMPRESSION: 1. Postoperative findings of cholecystectomy. No ultrasound abnormality of the right upper quadrant to explain right upper quadrant pain or vomiting. Consider CT or MRI to further evaluate. 2. Gravid uterus partially imaged. Status: Imported from PACS Assessment & Plan - Diagnosis (1) Cannabinoid hyperemesis syndrome Is this a current diagnosis for this admission?: Yes (2) Elevated lipase Is this a current diagnosis for this admission?: Yes (3) Opioid dependence Qualifiers: Substance use status: with unspecified opioid-induced disorder Qualified Code(s): F11.29 - Opioid dependence with unspecified opioid-induced disorder Is this a current diagnosis for this admission?: Yes - Time Medications reviewed and adjusted accordingly: Yes - Inpatient Certification Based on my medical assessment, after consideration of the patient's comorbidities, presenting symptoms, or acuity I expect that the services needed warrant INPATIENT care.: Yes I certify that my determination is in accordance with my understanding of Medicare's requirements for reasonable and necessary INPATIENT services [42 CFR 412.3e].: Yes Medical Necessity: Failure to Improve With Outpatient Therapy, Need Close Monitoring Due to Risk of Patient Decompensation - Plan Summary Plan Summary: 1. Hyperemesis of -VSS -Exam negative except mild epigastric tenderness on palpation. NO rebound or garding. Abd soft. -No n/v currently. No vomiting since 299 -PPI ordered in addition to H2 diana. -Zofran, phenergan and reglan ordered -FHT daily -Has been NPO and IVFs only for approx 24 hours. WIll resume clear liquid diet for dinner meal. 2. Hypokalemia -Mag level 1.7 -Changed IV fluids to include 40 meq KCL -KCL 40 meq IV x 1 additionally -Recheck labs in am
[2019-05-03] MEDS: ONDANSETRON 4 MG TAB.RAPDIS PO PRN ×2 (05:15→14:57)
[2019-05-03] MEDS: FAMOTIDINE INJ/PF 20 MG/2 ML SDV IV SCH ×2 (05:18→17:24)
[2019-05-03] MEDS: METOCLOPRAMIDE HCL INJ/PF 10 MG/2 ML SDV IV SCH ×3 (05:19→17:24)
[2019-05-03] MEDS: DEXTROSE 5%-LACTATED RINGERS 1,000 ML IV PRN (05:25)
[2019-05-03] MEDS: PANTOPRAZOLE SODIUM 40 MG TABLET.DR PO SCH (05:43)
[2019-05-03 06:45] LABS: ALBUMIN 2.8 g/dL (3.5-5.0); ALKALINE PHOSPHATASE 85 U/L (38-126); ANION GAP 8 (5-19); ASPARTATE AMINO TRANSFERASE 26 U/L (14-36); BILIRUBIN,DIRECT 0.2 mg/dL (0.0-0.4); BILIRUBIN,TOTAL 0.3 mg/dL (0.2-1.3); BLOOD UREA NITROGEN 3 mg/dL (7-20); CALCIUM 7.9 mg/dL (8.4-10.2); CARBON DIOXIDE 20 mmol/L (22-30); CHLORIDE 108 mmol/L (98-107); GLUCOSE 83 mg/dL (75-110); POTASSIUM 3.1 mmol/L (3.6-5.0); TOTAL PROTEIN 5.2 g/dL (6.3-8.2)
--- NOTE | 2019-05-03 08:18 | PDOC PROGRESS REPORT ---
Subjective Progress Note for:: 05/03/19 Subjective:: Still complaining of pain in the epigastric area. She is not able to drink which she attributes to having the pain. Reason For Visit: Physical Exam Vital Signs: Temp Pulse Resp BP Pulse Ox 98.1 F 73 18 119/58 L 100 05/03/19 04:55 05/03/19 04:55 05/03/19 04:55 05/03/19 04:55 05/03/19 04:55 Intake & Output 05/02/19 05/03/19 05/04/19 06:59 06:59 06:59 Intake Total 1194 3955.2 Output Total 2900 1350 Balance -1706 2605.2 Weight 79.4 kg 76.5 kg Exam: Abdomen is soft with mild tenderness in the epigastric area. The rest of the abdomen is soft and nontender Results Laboratory Results: 05/02/19 09:01 05/03/19 05:32 05/02/19 05/02/19 05/02/19 09:01 09:01 09:01 WBC 14.4 H RBC 3.53 L Hgb 8.0 L Hct 24.4 L MCV 69 L MCH 22.6 L MCHC 32.7 RDW 14.5 H Plt Count 190 Seg Neutrophils % 75.7 Sodium 136.7 L Potassium 2.9 L* Chloride 109 H Carbon Dioxide 20 L Anion Gap 8 BUN 3 L Creatinine 0.43 L Est GFR ( Amer) > 60 Glucose 100 Calcium 8.3 L Magnesium 1.7 Total Bilirubin 0.3 AST 24 Alkaline Phosphatase 87 Total Protein 5.4 L Albumin 2.9 L Amylase 37 Lipase 36.7 05/03/19 05:32 WBC RBC Hgb Hct MCV MCH MCHC RDW Plt Count Seg Neutrophils % Sodium 136.2 L Potassium 3.1 L Chloride 108 H Carbon Dioxide 20 L Anion Gap 8 BUN 3 L Creatinine 0.42 L Est GFR ( Amer) > 60 Glucose 83 Calcium 7.9 L Magnesium 1.7 Total Bilirubin 0.3 AST 26 Alkaline Phosphatase 85 Total Protein 5.2 L Albumin 2.8 L Amylase Lipase Impressions: Abdomen Ultrasound 05/01/19 08:30 IMPRESSION: 1. Postoperative findings of cholecystectomy. No ultrasound abnormality of the right upper quadrant to explain right upper quadrant pain or vomiting. Consider CT or MRI to further evaluate. 2. Gravid uterus partially imaged. Assessment & Plan - Diagnosis (1) Cannabinoid hyperemesis syndrome Is this a current diagnosis for this admission?: Yes (2) Elevated lipase Is this a current diagnosis for this admission?: Yes (3) Opioid dependence Qualifiers: Substance use status: with unspecified opioid-induced disorder Qualified Code(s): F11.29 - Opioid dependence with unspecified opioid-induced disorder Is this a current diagnosis for this admission?: Yes - Time Time Spent with patient: 15-24 minutes - Inpatient Certification Medical Necessity: Need For IV Fluids - Plan Summary Plan Summary: Her abdominal pain and nausea may be still part of the cannabinoid reaction. We will still need potassium supplement with her potassium still low at 3.1 Will reevaluate in a.m..
[2019-05-03] MEDS: PROMETHAZINE HCL INJ 25 MG/1 ML VIAL IV PRN ×2 (09:10→14:54)
--- NOTE | 2019-05-03 10:19 | PDOC PROGRESS REPORT ---
Subjective Progress Note for:: 05/03/19 Subjective:: She is feeling much better today. Reason For Visit: She is recovering from nausea and vomiting. Physical Exam - Physical Exam Vital Signs: Temp Pulse Resp BP Pulse Ox 97.8 F 80 18 105/70 97 05/03/19 08:28 05/03/19 08:28 05/03/19 08:28 05/03/19 08:28 05/03/19 08:28 Intake & Output 05/02/19 05/03/19 05/04/19 06:59 06:59 06:59 Intake Total 1194 3955.2 Output Total 2900 1350 Balance -1706 2605.2 Weight 79.4 kg 76.5 kg General appearance: PRESENT: no acute distress, well-developed, well-nourished Result Laboratory Results: 05/02/19 09:01 05/03/19 05:32 05/02/19 05/03/19 09:01 05:32 Sodium 136.2 L Potassium 3.1 L Chloride 108 H Carbon Dioxide 20 L Anion Gap 8 BUN 3 L Creatinine 0.42 L Est GFR ( Amer) > 60 Glucose 83 Calcium 7.9 L Magnesium 1.7 1.7 Total Bilirubin 0.3 AST 26 Alkaline Phosphatase 85 Total Protein 5.2 L Albumin 2.8 L Impressions: Abdomen Ultrasound 05/01/19 08:30 IMPRESSION: 1. Postoperative findings of cholecystectomy. No ultrasound abnormality of the right upper quadrant to explain right upper quadrant pain or vomiting. Consider CT or MRI to further evaluate. 2. Gravid uterus partially imaged. Assessment & Plan - Diagnosis (1) Cannabinoid hyperemesis syndrome Is this a current diagnosis for this admission?: Yes Plan: Advance diet today. - Time Time Spent with patient: 15-24 minutes Medications reviewed and adjusted accordingly: Yes Anticipated discharge: Home Within: within 24 hours
[2019-05-03] MEDS: ACETAMINOPHEN 325 MG TABLET PO PRN (14:54)
[2019-05-03 21:57] LABS: ANION GAP 7 (5-19); BLOOD UREA NITROGEN 3 mg/dL (7-20); CALCIUM 8.5 mg/dL (8.4-10.2); CARBON DIOXIDE 20 mmol/L (22-30); CHLORIDE 110 mmol/L (98-107); GLUCOSE 89 mg/dL (75-110); POTASSIUM 3.3 mmol/L (3.6-5.0)
[2019-05-03] MEDS ORDERED: DIPHENHYDRAMINE HCL 25 MG CAPSULE PO PRN (23:22)
[2019-05-03] MEDS ORDERED: PROMETHAZINE HCL 25 MG TABLET PO PRN (23:23)
[2019-05-03] MEDS: METOCLOPRAMIDE HCL 10 MG TABLET PO SCH (23:41)
[2019-05-04] MEDS: PANTOPRAZOLE SODIUM 40 MG TABLET.DR PO SCH (05:45)
[2019-05-04] MEDS: METOCLOPRAMIDE HCL 10 MG TABLET PO SCH (05:45)
[2019-05-04] MEDS: ONDANSETRON 4 MG TAB.RAPDIS PO PRN (08:25)
[2019-05-04] MEDS ORDERED: FAMOTIDINE 20 MG TABLET PO SCH (10:00)
[2019-05-04] MEDS ORDERED: MORPHINE SULFATE IR 15 MG TABLET PO PRN (10:13)
[2019-05-04 10:43] VITALS: BP 128/68
[2019-05-04] MEDS ORDERED: VIT B6 PO SCH ×2 (18:00→22:00)
[2019-05-04] MEDS ORDERED: [UNRECOGNIZED DRUG - OTHER] PO SCH (18:00)
[2019-05-04] MEDS ORDERED: DOXYLAMINE SUCCINATE PO SCH ×2 (18:00→22:00)
[2019-05-04] MEDS ORDERED: ESCITALOPRAM OXALATE 10 MG TABLET PO SCH (22:00)
[2019-05-04] MEDS ORDERED: [UNRECOGNIZED DRUG - OTHER] PO SCH (22:00)
[2019-05-06 09:25] LABS: CANNABINOID CONFIRMATION UR Positive (.)
--- NOTE | 2019-05-13 13:31 | PDOC DISCHARGE SUMMARY ---
Impression - Admit/DC Date/PCP Admission Date/Primary Care Provider: 04/30/19 07:25 KIRBY DAVIS DO Discharge Date: 05/04/19 - Discharge Diagnosis (1) Cannabinoid hyperemesis syndrome Is this a current diagnosis for this admission?: Yes (2) Elevated lipase Is this a current diagnosis for this admission?: Yes (3) Opioid dependence Is this a current diagnosis for this admission?: Yes - Additional Information Discharge Diet: As Tolerated Discharge Activity: Activity As Tolerated Referrals: KIRBY COLINDRES DO [Primary Care Provider] - Prescriptions: Ferrous Fumarate [Ferretts] 325 mg PO BID 90 Days #60 tablet Famotidine [Pepcid 20 mg Tablet] 20 mg PO BID 30 Days #60 tablet Pantoprazole Sodium [Protonix [address] Tablet] 40 mg PO QAM 90 Days #30 tablet. Ondansetron HCl [Zofran 4 mg Tablet] 1 - 2 tab PO Q4H PRN #10 tablet PRN Reason: Home Medications: Escitalopram Oxalate [Lexapro] 20 mg PO QHS 04/30/19 Doxylamine Succinate/Vit B6 [Diclegis Dr 10-10 mg Tablet] 1 each PO BID 05/02/19 Doxylamine Succinate/Vit B6 [Doxylamine-Pyridoxine 10-10 mg] 2 each PO QHS 05/02/19 Morphine Sulfate [Morphine Ir 15 mg Tablet] 15 mg PO Q8HP PRN 05/02/19 Acetaminophen [Tylenol 325 mg Tablet] 650 mg PO Q4HP PRN tablet 05/04/19 Diphenhydramine HCl [Benadryl 25 mg Capsule] 25 mg PO Q4HP PRN capsule 05/04/19 Famotidine [Pepcid 20 mg Tablet] 20 mg PO BID 30 Days #60 tablet 05/04/19 Ferrous Fumarate [Ferretts] 325 mg PO BID 90 Days #60 tablet 05/04/19 Ondansetron HCl [Zofran 4 mg Tablet] 1 - 2 tab PO Q4H PRN #10 tablet 05/04/19 Pantoprazole Sodium [Protonix [address] Tablet] 40 mg PO QAM 90 Days #30 tablet. 05/04/19 Promethazine HCl [Phenergan 25 mg Tablet] 25 mg PO Q4HP PRN tablet 05/04/19 History of Present Illiness History of Present Illness: AKIL SMITH is a 38 year old female Hospital Course Hospital Course: Admitted with nausea/vomiting of further complicated by substance abuse in . She underwent IV hydration and replacement of electrolytes. Other etiology ruled out for her symptoms. status reassuring. Stable for discharge Physical Exam - Physical Exam Vital Signs: Temp Pulse Resp BP Pulse Ox 97.9 F 81 16 128/68 H 100 05/04/19 10:36 05/04/19 10:36 05/04/19 10:36 05/04/19 10:36 05/04/19 10:36 Results Laboratory Results: WBC 14.4 10^3/uL (4.0-10.5) H 05/02/19 09:01 RBC 3.53 10^6/uL (3.72-5.28) L 05/02/19 09:01 Hgb 8.0 g/dL (12.0-15.5) L 05/02/19 09:01 Hct 24.4 % (36.0-47.0) L 05/02/19 09:01 MCV 69 fl (80-97) L 05/02/19 09:01 MCH 22.6 pg (27.0-33.4) L 05/02/19 09:01 MCHC 32.7 g/dL (32.0-36.0) 05/02/19 09:01 RDW 14.5 % (11.5-14.0) H 05/02/19 09:01 Plt Count 190 10^3/uL (150-450) 05/02/19 09:01 Lymph % (Auto) 18.0 % (13-45) 05/02/19 09:01 Callahan % (Auto) 5.9 % (3-13) 05/02/19 09:01 Eos % (Auto) 0.1 % (0-6) 05/02/19 09:01 Baso % (Auto) 0.3 % (0-2) 05/02/19 09:01 Reticulocyte # 0.066 10^6/uL (0.028-0.122) 05/01/19 06:02 Absolute Neuts (auto) 10.9 10^3/uL (1.7-8.2) H 05/02/19 09:01 Absolute Lymphs (auto) 2.6 10^3/uL (0.5-4.7) 05/02/19 09:01 Absolute Monos (auto) 0.9 10^3/uL (0.1-1.4) 05/02/19 09:01 Absolute Eos (auto) 0.0 10^3/uL (0.0-0.6) 05/02/19 09:01 Absolute Basos (auto) 0.0 10^3/uL (0.0-0.2) 05/02/19 09:01 Seg Neutrophils % 75.7 % (42-78) 05/02/19 09:01 Retic Count (auto) 1.87 % (0.66-2.85) 05/01/19 06:02 Sodium 136.7 mmol/L (137-145) L 05/03/19 21:32 Potassium 3.3 mmol/L (3.6-5.0) L 05/03/19 21:32 Chloride 110 mmol/L (98-107) H 05/03/19 21:32 Carbon Dioxide 20 mmol/L (22-30) L 05/03/19 21:32 Anion Gap 7 (5-19) 05/03/19 21:32 BUN 3 mg/dL (7-20) L 05/03/19 21:32 Creatinine 0.49 mg/dL (0.52-1.25) L 05/03/19 21:32 Est GFR ( Amer) > 60 (>60) 05/03/19 21:32 Est GFR (MDRD) Non-Af > 60 (>60) 05/03/19 21:32 Glucose 89 mg/dL (75-110) 05/03/19 21:32 Calcium 8.5 mg/dL (8.4-10.2) 05/03/19 21:32 Magnesium 1.7 mg/dL (1.6-2.3) 05/03/19 05:32 Iron 52.0 ug/dL (37-170) 04/29/19 22:17 TIBC 459 ug/dL (250-450) H 04/29/19 22:17 % Saturation 11 % 04/29/19 22:17 Ferritin 12.00 ng/mL (6.2-137.0) 04/29/19 22:17 Total Bilirubin 0.3 mg/dL (0.2-1.3) 05/03/19 05:32 Direct Bilirubin 0.2 mg/dL (0.0-0.4) 05/03/19 05:32 Neonat Total Bilirubin Not Reportable 05/03/19 05:32 Neonat Direct Bilirubin Not Reportable 05/03/19 05:32 Neonat Indirect Bili Not Reportable 05/03/19 05:32 AST 26 U/L (14-36) 05/03/19 05:32 ALT 24 U/L (<35) 05/03/19 05:32 Alkaline Phosphatase 85 U/L (38-126) 05/03/19 05:32 Total Protein 5.2 g/dL (6.3-8.2) L 05/03/19 05:32 Albumin 2.8 g/dL (3.5-5.0) L 05/03/19 05:32 Amylase 37 U/L (30-110) 05/02/19 09:01 Lipase 36.7 U/L (23-300) 05/02/19 09:01 Vitamin B12 192.0 pg/mL (239-931) L 04/29/19 22:17 Folate 8.35 ng/mL (>2.76) 04/29/19 22:17 TSH 1.79 uIU/mL (0.47-4.68) 05/01/19 06:02 Free T4 0.90 ng/dL (0.78-2.19) 05/01/19 06:02 Free T3 pg/mL 2.16 pg/mL (2.77-5.27) L 05/01/19 06:02 Urine Color YELLOW 04/29/19 22:14 Urine Appearance SLIGHTLY-CLOUDY 04/29/19 22:14 Urine pH 7.0 (5.0-9.0) 04/29/19 22:14 Ur Specific [place] 1.017 04/29/19 22:14 Urine Protein 100 mg/dL (NEGATIVE) H 04/29/19 22:14 Urine Glucose (UA) NEGATIVE mg/dL (NEGATIVE) 04/29/19 22:14 Urine Ketones 80 mg/dL (NEGATIVE) H 04/29/19 22:14 Urine Blood NEGATIVE (NEGATIVE) 04/29/19 22:14 Urine Nitrite NEGATIVE (NEGATIVE) 04/29/19 22:14 Urine Bilirubin NEGATIVE (NEGATIVE) 04/29/19 22:14 Urine Urobilinogen NEGATIVE mg/dL (<2.0) 04/29/19 22:14 Ur Leukocyte Esterase NEGATIVE (NEGATIVE) 04/29/19 22:14 Urine WBC (Auto) 5 /HPF 04/29/19 22:14 Urine RBC (Auto) 3 /HPF 04/29/19 22:14 Squamous Epi Cells Auto 2 /HPF 04/29/19 22:14 Urine Mucus (Auto) MOD /LPF 04/29/19 22:14 Urine Ascorbic Acid NEGATIVE (NEGATIVE) 04/29/19 22:14 Urine Opiates Screen UNCONFIRMED POSITIVE 04/29/19 22:14 Ur Opiates Confirm Positive (.) H 04/29/19 22:14 Urine Methadone Screen NEGATIVE 04/29/19 22:14 Ur Barbiturates Screen NEGATIVE 04/29/19 22:14 Ur Phencyclidine Scrn NEGATIVE 04/29/19 22:14 Ur Amphetamines Screen NEGATIVE 04/29/19 22:14 U Benzodiazepines Scrn NEGATIVE 04/29/19 22:14 Urine Cocaine Screen NEGATIVE 04/29/19 22:14 U Cannabinoids Confirm Positive (.) H 04/29/19 22:14 U Marijuana (THC) Screen UNCONFIRMED POSITIVE 04/29/19 22:14 Impressions: Abdomen Ultrasound 05/01/19 08:30 IMPRESSION: 1. Postoperative findings of cholecystectomy. No ultrasound abnormality of the right upper quadrant to explain right upper quadrant pain or vomiting. Consider CT or MRI to further evaluate. 2. Gravid uterus partially imaged. Stroke Is this a Stroke Patient?: No Acute Heart Failure - Is this a Heart Failure Patient?: No
== END 2019-05-04 11:14 | disposition home or self-care (01) | DRG 832 ==
LOC: EDSTATUS 20:07 → LC 20:11 → OBSVTOIN 04-30 07:25 → LR 04-30 07:25 → 2N 04-30 09:21
PROVIDERS: ADMIT Obstetrics & Gynecology; ATTEND Obstetrics & Gynecology
DX: O21.1 Hyperemesis gravidarum with metabolic disturbance (principal); O99.323 Drug use complicating pregnancy, third trimester; F11.20 Opioid dependence, uncomplicated; O21.2 Late vomiting of pregnancy; F12.188 Cannabis abuse with other cannabis-induced disorder; R74.8 Abnormal levels of other serum enzymes; M54.2 Cervicalgia; O99.513 Diseases of the respiratory system complicating pregnancy, third trimester; K21.9 Gastro-esophageal reflux disease without esophagitis; Z3A.28 28 weeks gestation of pregnancy; Z90.49 Acquired absence of other specified parts of digestive tract
CPT/HCPCS: 36415; 76705; 80053; 80307; 80349; 80361; 81001; 82150; 82607; 82728; 82746; 83540; 83550; 83690; 83735; 84439; 84443; 84481; 85025; 85027; 85045; G0480; J0131; J1100; J1200; J1756; J2060; J2405; J2550; J2765; J3411; J3475; J3480; J3490; J7030; J7121; S0028; S0119

== ENCOUNTER 2019-05-14 16:40 | Outpatient (CLI) | payer MEDICAID ==
[2019-05-14] MEDS ORDERED: FAMOTIDINE INJ/PF 20 MG/2 ML SDV IV ONE ×2 (17:08→19:05)
[2019-05-14] MEDS ORDERED: ONDANSETRON HCL INJ/PF 4 MG/2 ML SDV ONE (17:08)
[2019-05-14 18:20] LABS: APPEARANCE,URINE CLOUDY; BILIRUBIN,URINE NEGATIVE (NEGATIVE); COLOR,URINE AMBER; GLUCOSE, URINE 50 mg/dL (NEGATIVE); KETONES,URINE 80 mg/dL (NEGATIVE); LEUKOCYTE ESTERASE,URINE NEGATIVE (NEGATIVE); NITRITE,URINE NEGATIVE (NEGATIVE); PROTEIN,URINE >=500 mg/dL (NEGATIVE); URINE SPECIFIC GRAVITY 1.024; UROBILINOGEN,URINE NEGATIVE mg/dL (<2.0)
[2019-05-14] MEDS ORDERED: PROMETHAZINE HCL INJ 25 MG/1 ML VIAL ONE (18:28)
[2019-05-14 18:39] LABS: URINE AMPHETAMINES SCREEN NEGATIVE; URINE BARBITURATES SCREEN NEGATIVE; URINE BENZODIAZEPINES SCREEN NEGATIVE; URINE COCAINE SCREEN NEGATIVE; URINE METHADONE SCREEN NEGATIVE; URINE PHENCYCLIDINE SCREEN NEGATIVE
[2019-05-14 18:47] LABS: URINE MARIJUANA (THC) SCREEN UNCONFIRMED POSITIVE
[2019-05-14] MEDS ORDERED: RINGERS SOLUTION,LACTATED 1,000 ML IV PRN (19:05)
[2019-05-14] MEDS ORDERED: ONDANSETRON HCL INJ/PF 4 MG/2 ML SDV IV ONE (19:05)
[2019-05-14] MEDS ORDERED: PROMETHAZINE HCL INJ 25 MG/1 ML VIAL IV ONE (19:05)
[2019-05-14] MEDS ORDERED: DEXAMETHASONE SOD PHOSPHATE INJ 4 MG/1 ML VIAL ONE (20:03)
[2019-05-14] MEDS ORDERED: ZOLPIDEM TARTRATE 5 MG TABLET ONE (23:08)
== END 2019-05-15 07:39 | disposition home or self-care (01) ==
LOC: LC 16:40
PROVIDERS: ATTEND Obstetrics & Gynecology
PROC: 4A1HXCZ Monitoring of Products of Conception, Cardiac Rate, External Approach (ICD-10-PCS; principal; 2019-05-14)
DX: O99.283 Endocrine, nutritional and metabolic diseases complicating pregnancy, third trimester (principal); E86.0 Dehydration; Z3A.30 30 weeks gestation of pregnancy
CPT/HCPCS: 59899; 36415; 81001; 80307; 80361; G0480 ×2; J1100; J3490; J2550; J2405; S0028; 80349

== ENCOUNTER → 2019-05-16 | Outpatient (CLI) | payer MEDICAID ==
[2019-05-16 13:14] LABS: ABSOLUTE LYMPHOCYTES (AUTO) 1.8 10^3/uL (0.5-4.7); ABSOLUTE MONOCYTES (AUTO) 0.4 10^3/uL (0.1-1.4); ABSOLUTE NEUT (AUTO) 12.9 10^3/uL (1.7-8.2); BASOPHILS % (AUTO) 0.2 % (0-2); HEMATOCRIT 27.5 % (36.0-47.0); HEMOGLOBIN 8.9 g/dL (12.0-15.5); LYMPHOCYTES % (AUTO) 11.6 % (13-45); MEAN CORPUSCULAR HEMOGLOBIN 22.8 pg (27.0-33.4); MEAN CORPUSCULAR HGB CONC 32.4 g/dL (32.0-36.0); MEAN CORPUSCULAR VOLUME 70 fl (80-97); MONOCYTES % (AUTO) 2.7 % (3-13); PLATELET COUNT 273 10^3/uL (150-450); RED BLOOD COUNT 3.91 10^6/uL (3.72-5.28); RED CELL DISTRIBUTION WIDTH 14.6 % (11.5-14.0); SEGMENTED NEUTROPHILS % (AUTO) 85.5 % (42-78); TOTAL CELLS COUNTED % (AUTO) 100 %; WHITE BLOOD COUNT 15.1 10^3/uL (4.0-10.5)
[2019-05-16 13:29] LABS: ALBUMIN 3.6 g/dL (3.5-5.0); ALKALINE PHOSPHATASE 99 U/L (38-126); ANION GAP 9 (5-19); ASPARTATE AMINO TRANSFERASE 20 U/L (14-36); BILIRUBIN,DIRECT 0.1 mg/dL (0.0-0.4); BILIRUBIN,TOTAL 0.3 mg/dL (0.2-1.3); BLOOD UREA NITROGEN 7 mg/dL (7-20); CALCIUM 8.9 mg/dL (8.4-10.2); CARBON DIOXIDE 22 mmol/L (22-30); CHLORIDE 105 mmol/L (98-107); GLUCOSE 85 mg/dL (75-110); POTASSIUM 3.7 mmol/L (3.6-5.0); TOTAL PROTEIN 6.5 g/dL (6.3-8.2)
== END ==
LOC: OD 11:41
PROVIDERS: ATTEND Midwife
DX: E86.0 Dehydration (principal)
CPT/HCPCS: 36415; 80053; 85025

== ENCOUNTER → 2019-05-16 | Outpatient (CLI) | payer MEDICAID ==
--- NOTE | 2019-05-16 13:18 | RADIOLOGY REPORT (SQ) ---
EXAM DESCRIPTION: U/S RETROPERITON (RENAL/AORTA) COMPLETED DATE/TIME: 05/16/2019 1:06 pm REASON FOR STUDY: (R10.9)UNSPECIFIED ABDOMINAL PAIN R10.9 UNSPECIFIED ABDOMINAL PAIN COMPARISON: None. TECHNIQUE: Dynamic and static grayscale images acquired of the kidneys and bladder and recorded on P ACS. Additional selected color Doppler and spectral images recorded. LIMITATIONS: None. FINDINGS: RIGHT KIDNEY: Normal size, 10.6 cm. Normal echogenicity. No solid or suspicious masses. No hydronephrosis. No calcifications. LEFT KIDNEY: Normal size, 10.8 cm. Normal echogenicity. No solid or suspicious masses. No hydronephr osis. No calcifications. BLADDER: Ureteral jets are not seen. No bladder mass is present. OTHER FINDINGS: No other significant finding. IMPRESSION: NORMAL RENAL AND BLADDER ULTRASOUND. TECHNICAL DOCUMENTATION: JOB ID: [id number] [employer]- All Rights Reserved Reading location - IP/workstation name: [email or web address]
== END ==
LOC: RAD 12:02
PROVIDERS: ATTEND Midwife
DX: R10.9 Unspecified abdominal pain (principal)
CPT/HCPCS: 76770

== ENCOUNTER 2019-06-10 06:37 | Observation (INO) | payer MEDICAID ==
[2019-06-10] MEDS: RINGERS SOLUTION,LACTATED 1,000 ML IV PRN ×3 (07:15→21:00)
[2019-06-10] MEDS ORDERED: ONDANSETRON HCL INJ/PF 4 MG/2 ML SDV ONE ×2 (07:29→11:01)
[2019-06-10 07:35] LABS: APPEARANCE,URINE CLOUDY; BILIRUBIN,URINE NEGATIVE (NEGATIVE); COLOR,URINE DARK YELLOW; GLUCOSE, URINE 50 mg/dL (NEGATIVE); KETONES,URINE 80 mg/dL (NEGATIVE); LEUKOCYTE ESTERASE,URINE NEGATIVE (NEGATIVE); NITRITE,URINE NEGATIVE (NEGATIVE); PROTEIN,URINE >=500 mg/dL (NEGATIVE); URINE SPECIFIC GRAVITY 1.024; UROBILINOGEN,URINE NEGATIVE mg/dL (<2.0)
[2019-06-10 07:46] LABS: URINE AMPHETAMINES SCREEN NEGATIVE; URINE BARBITURATES SCREEN NEGATIVE; URINE BENZODIAZEPINES SCREEN NEGATIVE; URINE COCAINE SCREEN NEGATIVE; URINE METHADONE SCREEN NEGATIVE; URINE PHENCYCLIDINE SCREEN NEGATIVE
[2019-06-10 07:52] LABS: URINE MARIJUANA (THC) SCREEN UNCONFIRMED POSITIVE
[2019-06-10] MEDS ORDERED: PROMETHAZINE HCL INJ 25 MG/1 ML VIAL ONE ×2 (08:06→12:15)
[2019-06-10] MEDS ORDERED: PROMETHAZINE HCL INJ 25 MG/1 ML VIAL IV ONE (08:09)
[2019-06-10] MEDS ORDERED: RINGERS SOLUTION,LACTATED 1,000 ML IV PRN (09:08)
[2019-06-10] MEDS ORDERED: ONDANSETRON HCL INJ/PF 4 MG/2 ML SDV IV ONE (11:04)
[2019-06-10 11:29] LABS: HEMATOCRIT 30.8 % (36.0-47.0); HEMOGLOBIN 9.9 g/dL (12.0-15.5); MEAN CORPUSCULAR HEMOGLOBIN 22.5 pg (27.0-33.4); MEAN CORPUSCULAR HGB CONC 32.2 g/dL (32.0-36.0); MEAN CORPUSCULAR VOLUME 70 fl (80-97); PLATELET COUNT 325 10^3/uL (150-450); RED BLOOD COUNT 4.41 10^6/uL (3.72-5.28); RED CELL DISTRIBUTION WIDTH 14.8 % (11.5-14.0); WHITE BLOOD COUNT 21.3 10^3/uL (4.0-10.5)
[2019-06-10 11:43] LABS: ALBUMIN 3.3 g/dL (3.5-5.0); ALKALINE PHOSPHATASE 154 U/L (38-126); ANION GAP 16 (5-19); ASPARTATE AMINO TRANSFERASE 17 U/L (14-36); BILIRUBIN,DIRECT 0.2 mg/dL (0.0-0.4); BILIRUBIN,TOTAL 0.5 mg/dL (0.2-1.3); BLOOD UREA NITROGEN 6 mg/dL (7-20); CALCIUM 9.4 mg/dL (8.4-10.2); CARBON DIOXIDE 17 mmol/L (22-30); CHLORIDE 105 mmol/L (98-107); GLUCOSE 95 mg/dL (75-110); POTASSIUM 3.3 mmol/L (3.6-5.0)
[2019-06-10 11:50] LABS: ABSOLUTE LYMPHOCYTES# (MANUAL) 0.9 10^3/uL (0.5-4.7); ABSOLUTE MONOCYTES # (MANUAL) 0.2 10^3/uL (0.1-1.4); BASOPHILS % (MANUAL) 0 % (0-2); EOSINOPHILS % (MANUAL) 0 % (0-6); LYMPHOCYTES % (MANUAL) 4 % (13-45); MONOCYTES % (MANUAL) 1 % (3-13); SEGMENTED NEUTROPHILS % (MAN) 95 % (42-78); TOTAL CELLS COUNTED 100
[2019-06-10 11:51] LABS: HYPOCHROMASIA 1+; POLYCHROMASIA 1+
[2019-06-10 11:52] LABS: ANISOCYTOSIS SLIGHT; OVALOCYTES SLIGHT; PLATELET COMMENT ADEQUATE; POIKILOCYTOSIS SLIGHT; TEAR DROP CELLS SLIGHT
[2019-06-10] MEDS ORDERED: PROMETHAZINE HCL 25 MG SUPP.RECT PR PRN (12:03)
[2019-06-10] MEDS ORDERED: CEFTRIAXONE INJ 1000 MG VIAL ONE (12:04)
--- NOTE | 2019-06-10 12:32 | Admission Physical ---
Datetime Report Generated by CPN: 06/10/2019 12:32 CURRENT ADMISSION Chief Complaint: Other Chief Complaint Other: Nausea and vomitting Indication for Induction: Not Applicable Admit Impression : , Intrauterine ; Observation/Evaluation Admit Impression- Other: elevated WBC, hematuria, suspected Pyelonephritis. +THC. Admit Plan: Observation/Evaluation Admit Plan- Other: Obs status for IV antibiotics ALLERGIES Medication Allergies: No Medication Allergies: No Known Allergies (03/25/2019) Latex: No Latex Allergies OBSTETRICAL HISTORY EDC: 07/23/2019 00:00 : 5 Para: 4 Term: 4 : 0 SAB: 0 IAB: 0 Ectopic: 0 Livin Cesareans: 2 VBACs: 0 Multiple Births: 0 Gestational Diabetes: No Rh Sensitization: No Incompetent Cervix: No RIKI: No Infertility: No ART Treatment: No Uterine Anomaly: No IUGR: No Hx Previous C/S: Yes Macrosomia: No Hx Loss/Stillborn: No PIH: No Hx : No Placenta Previa/Abruption: No Depression/PP Depression: Yes PTL/PROM: No Post Hemorrhage: No Current Procedures: Ultrasound Obstetrical History Comments: G1- 1999 at 38 weeks, 5lbs 11oz female G2- 2003 at 40 weeks, 8lbs 10oz female GDM G3- 2011 at 37 weeks, 6lbs 8oz male, placenta previa G4- 2016 C-sections at 38 weeks, 6lbs 13oz male G5- current MEDICAL HISTORY Diabetes: Yes Blood Transfusion: No Pulmonary Disease (Asthma, TB): No Breast Disease: No Hypertension: Yes 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 Surgery: No Heart Disease: No Hosp/Surgery: No Autoimmune Disorder: No Anesthetic Complications: No Kidney Disease: No Abnormal Pap Smear: No Neuro/Epilepsy: No Psychiatric Disorders: No Other Medical Diseases: No Hepatitis/Liver Disease: No Significant Family History: No Varicosities/Phlebitis: No Trauma/Violence : No Thyroid Dysfunction: No Medical History Comments: GDM with G2 in 2003 preeclampsia with G1 2000 INFECTIOUS HISTORY Gonorrhea: No Genital Herpes: No Chlamydia: Yes Tuberculosis: No Syphilis: No Hepatitis: No HIV/AIDS Exposure: No Rash or Viral Illness: No HPV: No PHYSICAL EXAM General: Normal HEENT: Normal Neurologic: Normal Thyroid: Normal Heart: Normal Lungs: Normal Breast: Normal Back: Abnormal Abdomen: Normal Genitourinary Exam: Normal Extremities: Normal DTRs: Normal Pelvic Type: Adequate Physical Exam Comments: +Rt sided CVA tenderness on exam Vital Signs: Reviewed FETUS A EGA: 33.6 Monitoring: External US FHR- Baseline: 140 Variability: Moderate 6-25bpm Accelerations: 15X15 Decelerations: None FHR Category: Category I Admit Comment: F5 P4 at 33+ wks, presents to L_D c/o increased nausea and vomitting. +THC this admission, pt does have Rx for Phenergan and Zofram at home, states they are not working. Labwork drawn, WBC noted to be 21.3. Pt denies fever, chills, malaise. After further converstation, pt is c/o of Rt sided flank pain as well. D/w Dr Virk and will give 1 gm IV Rocephin q 12 hours for at least 24 hours and repeat CBC w/ diff in the morning. PLANS FOR LABOR AND DELIVERY Labor and Delivery: None Pain Management: Epidural Feeding Preference: Both Benefit of Breast Feed Discussed: Yes INFORMED CONSENT Assignment: Sherine Virk MD Signature: with User ID: Kaley : with User ID: Kaley
[2019-06-10] MEDS: CEFTRIAXONE 1 GM/D5W RTU 1 GM/50 ML RTUPB IV SCH ×2 (14:20→21:26)
[2019-06-10] MEDS ORDERED: PROMETHAZINE HCL INJ 25 MG/1 ML VIAL IV PRN (15:12)
[2019-06-10] MEDS ORDERED: FAMOTIDINE INJ/PF 20 MG/2 ML SDV IV SCH (16:00)
[2019-06-10] MEDS: ONDANSETRON HCL INJ/PF 4 MG/2 ML SDV IV PRN (19:51)
[2019-06-11] MEDS: PROMETHAZINE HCL INJ 25 MG/1 ML VIAL IV PRN ×2 (02:16→09:15)
[2019-06-11] MEDS: RINGERS SOLUTION,LACTATED 1,000 ML IV PRN (04:30)
[2019-06-11] MEDS ORDERED: FAMOTIDINE INJ/PF 20 MG/2 ML SDV IV ONE (04:40)
[2019-06-11] MEDS: ONDANSETRON HCL INJ/PF 4 MG/2 ML SDV IV PRN ×2 (04:46→16:52)
[2019-06-11] MEDS: FAMOTIDINE INJ/PF 20 MG/2 ML SDV IV SCH ×2 (05:03→17:00)
[2019-06-11] MEDS: METOCLOPRAMIDE HCL INJ/PF 10 MG/2 ML SDV IV PRN ×3 (06:40→22:42)
[2019-06-11 08:19] LABS: HEMATOCRIT 26.6 % (36.0-47.0); HEMOGLOBIN 8.7 g/dL (12.0-15.5); MEAN CORPUSCULAR HEMOGLOBIN 22.7 pg (27.0-33.4); MEAN CORPUSCULAR HGB CONC 32.7 g/dL (32.0-36.0); MEAN CORPUSCULAR VOLUME 69 fl (80-97); PLATELET COUNT 278 10^3/uL (150-450); RED BLOOD COUNT 3.84 10^6/uL (3.72-5.28); RED CELL DISTRIBUTION WIDTH 14.6 % (11.5-14.0)
[2019-06-11 08:37] LABS: ANION GAP 11 (5-19); BLOOD UREA NITROGEN 5 mg/dL (7-20); CARBON DIOXIDE 19 mmol/L (22-30); CHLORIDE 109 mmol/L (98-107); GLUCOSE 114 mg/dL (75-110)
[2019-06-11 08:40] LABS: ABSOLUTE LYMPHOCYTES# (MANUAL) 3.2 10^3/uL (0.5-4.7); ABSOLUTE MONOCYTES # (MANUAL) 1.1 10^3/uL (0.1-1.4); BASOPHILS % (MANUAL) 0 % (0-2); EOSINOPHILS % (MANUAL) 0 % (0-6); LYMPHOCYTES % (MANUAL) 15 % (13-45); MONOCYTES % (MANUAL) 5 % (3-13); SEGMENTED NEUTROPHILS % (MAN) 80 % (42-78); TOTAL CELLS COUNTED 100
[2019-06-11 08:41] LABS: ANISOCYTOSIS SLIGHT; HYPOCHROMASIA 2+; OVALOCYTES 1+; PLATELET COMMENT ADEQUATE; POIKILOCYTOSIS 1+; POLYCHROMASIA SLIGHT; POTASSIUM 2.8 mmol/L (3.6-5.0)
[2019-06-11] MEDS: CEFTRIAXONE 1 GM/D5W RTU 1 GM/50 ML RTUPB IV SCH ×2 (10:11→21:23)
[2019-06-11] MEDS ORDERED: NORMAL SALINE 1000 ML 1,000 ML with POTASSIUM CHLORIDE 20 MEQ, MAGNESIUM SULFATE 8 MEQ,... IV ONE ×5 (14:00)
--- NOTE | 2019-06-11 16:48 | PDOC PROGRESS REPORT ---
<MAGDALENO WILKES M - Last Filed: 06/11/19 16:37> Subjective Progress Note for:: 06/11/19 Subjective:: 38yo admitted yesterday with presumptive pyelonephritis and cannabinoid induced hyperemesis. Pt has been afebrile since admission and has bee on antibiotics. Reports back is still painful and continues vomiting even water. No concerns today. Reason For Visit: OBSERVATION Physical Exam - Physical Exam Vital Signs: Temp Pulse Resp BP Pulse Ox 98.4 F 80 16 106/60 100 06/11/19 15:25 06/11/19 15:25 06/11/19 15:25 06/11/19 15:25 06/11/19 15:25 Intake & Output 06/10/19 06/11/19 06/12/19 06:59 06:59 06:59 Intake Total 1988 Output Total 1650 Balance 338 Weight 72 kg General appearance: PRESENT: no acute distress Neurological exam: PRESENT: alert, altered, awake Psychiatric exam: PRESENT: flat affect - Obstetrical Exam Tender: No Result Laboratory Results: 06/11/19 07:30 06/11/19 07:30 06/11/19 06/11/19 07:30 07:30 WBC 21.0 H RBC 3.84 Hgb 8.7 L Hct 26.6 L MCV 69 L MCH 22.7 L MCHC 32.7 RDW 14.6 H Plt Count 278 Seg Neutrophils % Not Reportable Sodium 139.4 Potassium 2.8 L* Chloride 109 H Carbon Dioxide 19 L Anion Gap 11 BUN 5 L Creatinine 0.55 Est GFR ( Amer) > 60 Glucose 114 H Calcium 9.0 Assessment & Plan - Diagnosis (1) Hypokalemia Is this a current diagnosis for this admission?: Yes Plan: pt received K-rider, a new bag ordered and infusion on going at this time. Dr. Koch is OB acquisitions editor and aware (2) Pyelonephritis Is this a current diagnosis for this admission?: Yes Plan: preliminary urine result negative. Pt. with CVA tenderness still today and remains afebrile. Continue antibiotics as ordered on admission (3) Elevated white blood cell count Qualifiers: Leukocytosis type: unspecified Qualified Code(s): D72.829 - Elevated white blood cell count, unspecified Is this a current diagnosis for this admission?: Yes Plan: antibiotics ongoing. Continue plan as ordered (4) Cannabinoid hyperemesis syndrome Is this a current diagnosis for this admission?: Yes Plan: continue medication as ordered on admission. Decadron ordered by Dr. Koch who also consulted with hospitalist on recurrent re-admission for cannabinoid hyperemesis. Cessation encouraged. (5) Opioid dependence Qualifiers: Substance use status: with unspecified opioid-induced disorder Is this a current diagnosis for this admission?: Yes Plan: cessation encouraged - Time Time Spent with patient: Less than 15 minutes Level of Care: MEDICAL Smoking Cessation Education: 3 to 10 minutes Medications reviewed and adjusted accordingly: Yes Anticipated discharge: Home Within: within 24 hours - Inpatient Certification Post Hospital Care: D/C [employer] Documentation - Plan Summary Plan Summary: report given to Dr. Koch who is the OB acquisitions editor, NSTs also ordered q shift. <STEFANY KOCH - Last Filed: 06/11/19 18:28> Subjective Reason For Visit: OBSERVATION Physical Exam - Physical Exam Vital Signs: Temp Pulse Resp BP Pulse Ox 98.4 F 80 16 106/60 100 06/11/19 15:25 06/11/19 15:25 06/11/19 15:25 06/11/19 15:25 06/11/19 15:25 Intake & Output 06/10/19 06/11/19 06/12/19 06:59 06:59 06:59 Intake Total 1988 Output Total 1650 Balance 338 Weight 72 kg Result Laboratory Results: 06/11/19 07:30 06/11/19 07:30 06/11/19 06/11/19 07:30 07:30 WBC 21.0 H RBC 3.84 Hgb 8.7 L Hct 26.6 L MCV 69 L MCH 22.7 L MCHC 32.7 RDW 14.6 H Plt Count 278 Seg Neutrophils % Not Reportable Sodium 139.4 Potassium 2.8 L* Chloride 109 H Carbon Dioxide 19 L Anion Gap 11 BUN 5 L Creatinine 0.55 Est GFR ( Amer) > 60 Glucose 114 H Calcium 9.0 Assessment & Plan - Diagnosis (1) Cannabinoid hyperemesis syndrome Is this a current diagnosis for this admission?: Yes Plan: Surgicalist consulted on last admission - not this admission
[2019-06-11] MEDS ORDERED: DEXAMETHASONE SOD PHOSPHATE INJ 4 MG/1 ML VIAL IV ONE (18:00)
[2019-06-11] MEDS ORDERED: DEXAMETHASONE SOD PHOSPHATE INJ 4 MG/1 ML VIAL ONE (19:59)
[2019-06-12] MEDS: RINGERS SOLUTION,LACTATED 1,000 ML IV PRN ×3 (02:40→20:32)
[2019-06-12] MEDS: ONDANSETRON HCL INJ/PF 4 MG/2 ML SDV IV PRN ×3 (02:40→20:33)
[2019-06-12] MEDS: FAMOTIDINE INJ/PF 20 MG/2 ML SDV IV SCH ×2 (05:27→17:39)
[2019-06-12] MEDS: METOCLOPRAMIDE HCL INJ/PF 10 MG/2 ML SDV IV PRN ×2 (08:39→17:39)
--- NOTE | 2019-06-12 08:53 | PDOC PROGRESS REPORT ---
Subjective Progress Note for:: 06/12/19 Subjective:: pt states she feels better and is toleration regular diet Reason For Visit: OBSERVATION peylonephitis Physical Exam - Physical Exam Vital Signs: Temp Pulse Resp BP Pulse Ox 98.4 F 73 16 109/63 99 06/12/19 03:46 06/12/19 03:46 06/12/19 03:46 06/12/19 03:46 06/12/19 03:46 Intake & Output 06/11/19 06/12/19 06/13/19 06:59 06:59 06:59 Intake Total 1988 1500 Output Total 1650 100 Balance 338 1400 General appearance: PRESENT: no acute distress Cardiovascular exam: PRESENT: RRR - left CVA tenderness on percussion GI/Abdominal exam: PRESENT: soft Result Laboratory Results: 06/11/19 07:30 06/11/19 07:30 Assessment & Plan - Diagnosis (1) Elevated white blood cell count Qualifiers: Leukocytosis type: unspecified Qualified Code(s): D72.829 - Elevated white blood cell count, unspecified Is this a current diagnosis for this admission?: Yes (2) Hypokalemia Is this a current diagnosis for this admission?: Yes (3) Pyelonephritis Is this a current diagnosis for this admission?: Yes (4) Cannabinoid hyperemesis syndrome Is this a current diagnosis for this admission?: Yes (5) Elevated lipase Is this a current diagnosis for this admission?: Yes (6) Opioid dependence Qualifiers: Substance use status: uncomplicated Qualified Code(s): F11.20 - Opioid dependence, uncomplicated Is this a current diagnosis for this admission?: Yes - Time Time Spent with patient: Less than 15 minutes Medications reviewed and adjusted accordingly: Yes Anticipated discharge: Home Within: within 24 hours - Plan Summary Plan Summary: continue IV antibiotics and DC in am if stable
[2019-06-12] MEDS: CEFTRIAXONE 1 GM/D5W RTU 1 GM/50 ML RTUPB IV SCH ×2 (09:56→22:49)
[2019-06-12] MEDS ORDERED: ACETAMINOPHEN 325 MG TABLET ONE (16:28)
[2019-06-12] MEDS: ACETAMINOPHEN 325 MG TABLET PO PRN ×2 (16:35→21:20)
[2019-06-13] MEDS: ONDANSETRON HCL INJ/PF 4 MG/2 ML SDV IV PRN (05:32)
[2019-06-13] MEDS: FAMOTIDINE INJ/PF 20 MG/2 ML SDV IV SCH (05:33)
[2019-06-13 09:55] LABS: HEMATOCRIT 25.2 % (36.0-47.0); HEMOGLOBIN 8.1 g/dL (12.0-15.5); MEAN CORPUSCULAR HEMOGLOBIN 22.5 pg (27.0-33.4); MEAN CORPUSCULAR HGB CONC 32.3 g/dL (32.0-36.0); MEAN CORPUSCULAR VOLUME 70 fl (80-97); PLATELET COUNT 226 10^3/uL (150-450); RED BLOOD COUNT 3.62 10^6/uL (3.72-5.28); RED CELL DISTRIBUTION WIDTH 14.5 % (11.5-14.0); WHITE BLOOD COUNT 12.8 10^3/uL (4.0-10.5)
[2019-06-13 10:01] LABS: ALBUMIN 2.6 g/dL (3.5-5.0); ALKALINE PHOSPHATASE 127 U/L (38-126); ANION GAP 6 (5-19); ASPARTATE AMINO TRANSFERASE 47 U/L (14-36); BILIRUBIN,DIRECT 0.2 mg/dL (0.0-0.4); BILIRUBIN,TOTAL 0.3 mg/dL (0.2-1.3); CALCIUM 8.6 mg/dL (8.4-10.2); CARBON DIOXIDE 23 mmol/L (22-30); CHLORIDE 108 mmol/L (98-107); GLUCOSE 74 mg/dL (75-110); POTASSIUM 3.2 mmol/L (3.6-5.0); TOTAL PROTEIN 5.2 g/dL (6.3-8.2)
[2019-06-13 10:09] LABS: BLOOD UREA NITROGEN < 2 mg/dL (7-20)
[2019-06-13] MEDS: CEFTRIAXONE 1 GM/D5W RTU 1 GM/50 ML RTUPB IV SCH (10:34)
[2019-06-13 10:40] LABS: ABSOLUTE LYMPHOCYTES# (MANUAL) 1.9 10^3/uL (0.5-4.7); ABSOLUTE MONOCYTES # (MANUAL) 0.8 10^3/uL (0.1-1.4); BAND NEUTROPHILS % (MANUAL) 1 % (3-5); BASOPHILS % (MANUAL) 0 % (0-2); EOSINOPHILS % (MANUAL) 0 % (0-6); LYMPHOCYTES % (MANUAL) 15 % (13-45); METAMYELOCYTES % (MANUAL) 1 % (0-1); MONOCYTES % (MANUAL) 6 % (3-13); SEGMENTED NEUTROPHILS % (MAN) 77 % (42-78); TOTAL CELLS COUNTED 100
[2019-06-13 10:41] LABS: SMUDGE CELLS PRESENT
[2019-06-13 10:42] LABS: ANISOCYTOSIS SLIGHT; PLATELET COMMENT ADEQUATE
--- NOTE | 2019-06-13 11:27 | Discharge Summary ---
Discharge Summary (SDC) - Discharge Final Diagnosis: Pyelonephritits Discharge Date: 06/13/19 Condition: Stable Treatment or Instructions: Admitted for Pyelonephritis and is afebrile with no CVA tenderness.. WBC count down to 12. WIll d/c on PO antibiotics for 7 days. F/u with in 1 wk at office. Hydrate. Prescriptions: Cephalexin Monohydrate [Keflex 500 mg Capsule] 500 mg PO Q12 7 Days #14 capsule Referrals: [facility] [Provider Group] - 06/16/19 10:30 am (Please follow up at [facility] on 06/16/19 at 10:30. If you have any questions please call the office directly at .) Discharge Activity: Activity As Tolerated Home Care Assistance: None Needed Report the Following to Your Physician Immediately: Shortness of Breath, Nausea, Vomiting, Increase in Pain, Fever over 101 Degrees, Unusual Bleeding, Swelling, Drainage-Foul Smelling, IV Site Infection Signs
[2019-06-13 12:36] VITALS: BP 115/61
== END 2019-06-13 12:56 | disposition home or self-care (01) ==
LOC: LC 06:37 → LR 12:00 → 2S 13:54
PROVIDERS: ADMIT Obstetrics & Gynecology; ATTEND Obstetrics & Gynecology
DX: O23.03 Infections of kidney in pregnancy, third trimester (principal); O99.323 Drug use complicating pregnancy, third trimester; F12.988 Cannabis use, unspecified with other cannabis-induced disorder; O26.893 Other specified pregnancy related conditions, third trimester; E87.6 Hypokalemia; R74.8 Abnormal levels of other serum enzymes; F11.20 Opioid dependence, uncomplicated; Z3A.33 33 weeks gestation of pregnancy; Z87.59 Personal history of other complications of pregnancy, childbirth and the puerperium; Z86.32 Personal history of gestational diabetes
CPT/HCPCS: 59025 ×3; 36415 ×3; 87086; 85025 ×3; 80048; 80053 ×2; 81001; 80307; G0378 ×4; G0379; G0480 ×2; J3490 ×2; J1100; J3475; J2765 ×2; J3480; J2550 ×2; J0696 ×5; J3411; J2405 ×4; J7030; J7120 ×3; S0028 ×4; 80349

== ENCOUNTER 2019-06-16 12:00 | Outpatient (CLI) | payer MEDICAID ==
--- NOTE | 2019-06-16 14:14 | RADIOLOGY REPORT (SQ) ---
EXAM DESCRIPTION: U/S PROFILE W/O STRESS COMPLETED DATE/TIME: 06/16/2019 1:40 pm REASON FOR STUDY: BPP COMPARISON: None. TECHNIQUE: Limited serna-scale realtime and static images of the fetus to measure specified parameter s. LIMITATIONS: None. FINDINGS: HEART RATE: 153 beats per minute. BRENDA: Not calculated. Sufficient. BREATHING MOVEMENT: 2 points. MOVEMENT: 2 points. POSTURE AND TONE: 2 points. QUALITATIVE BRENDA: 2 points. OTHER: No other significant finding. IMPRESSION: BIOPHYSICAL PROFILE: 03/13. Trimester of : Third - 28 weeks to delivery COMMENT: BREATHING MOVEMENTS: 2 POINTS: PRESENT 0 POINTS: ABSENT MOTION: 2 POINTS: PRESENT 0 POINTS: ABSENT TONE: 2 POINTS: PRESENT 0 POINTS: ABSENT AMNIOTIC FLUID VOLUME: 2 POINTS: LARGEST POCKET GREATER THAN 2 CM DEPTH. 0 POINTS: NO POCKET OF 2 CM. TECHNICAL DOCUMENTATION: JOB ID: [id number] [employer]- All Rights Reserved Reading location - IP/workstation name: [email or web address]
== END 2019-06-16 14:25 | disposition home or self-care (01) ==
LOC: LC 12:00
PROVIDERS: ATTEND Obstetrics & Gynecology
PROC: 4A1HXCZ Monitoring of Products of Conception, Cardiac Rate, External Approach (ICD-10-PCS; principal; 2019-06-16)
DX: O09.523 Supervision of elderly multigravida, third trimester (principal); Z3A.39 39 weeks gestation of pregnancy
CPT/HCPCS: 59025; 76819; 94760

== ENCOUNTER 2019-06-19 15:02 | Outpatient (CLI) | payer MEDICAID ==
--- NOTE | 2019-06-19 15:12 | Non Stress Test Report ---
Non Stress Test Datetime Report Generated by CPN: 06/19/2019 15:12 DEMOGRAPHIC EGA NST: 34.5 INDICATION Indication for Study: Other - Please document "Reason for NST Other" in box below. (Annotations: Data stored by CPN on behalf of user) Indication for Study (NST) Other: AMA VITAL SIGNS Temperature - NST: 98.7 Pulse - NST: 90 RESP - NST: 16 NBPSYS NST: 119 NBPDIA NST: 76 MONITORING Monitor Explained: Monitor Explained; Test Explained; Patient Verbalized Understanding Time on Monitor: 06/16/2019 12:08 Time off Monitor: 06/16/2019 14:13 NST Duration: 125 NST INTERVENTIONS NST Interventions: Reposition Patient; For Biophysical Profile Physician Notified NST: Dr. Garry BABY A: [id number] BABY A Movement : Present Contraction Frequency : 0 FHR Baseline : 130 Accelerations : 15X15 Decelerations : None Variability : Moderate 6-25bpm NST Review: Meets Criteria for Reactive NST NST Review and Verified By : Justin Pacheco RN NST Results: Reactive NST REPORT Report Trigger: Send Report
[2019-06-19] MEDS ORDERED: HYDROXYZINE PAMOATE 50 MG CAPSULE PO ONE (15:46)
[2019-06-19] MEDS ORDERED: HYDROXYZINE PAMOATE 50 MG CAPSULE ONE (15:54)
[2019-06-19 16:10] LABS: HEMATOCRIT 28.4 % (36.0-47.0); HEMOGLOBIN 9.1 g/dL (12.0-15.5); MEAN CORPUSCULAR HEMOGLOBIN 22.1 pg (27.0-33.4); MEAN CORPUSCULAR HGB CONC 32.1 g/dL (32.0-36.0); MEAN CORPUSCULAR VOLUME 69 fl (80-97); PLATELET COUNT 246 10^3/uL (150-450); RED BLOOD COUNT 4.14 10^6/uL (3.72-5.28); RED CELL DISTRIBUTION WIDTH 14.3 % (11.5-14.0); WHITE BLOOD COUNT 14.9 10^3/uL (4.0-10.5)
[2019-06-19 16:34] LABS: ALBUMIN 3.2 g/dL (3.5-5.0); ALKALINE PHOSPHATASE 156 U/L (38-126); ANION GAP 11 (5-19); ASPARTATE AMINO TRANSFERASE 17 U/L (14-36); BILIRUBIN,DIRECT 0.1 mg/dL (0.0-0.4); BILIRUBIN,TOTAL 0.2 mg/dL (0.2-1.3); BLOOD UREA NITROGEN 4 mg/dL (7-20); CALCIUM 9.4 mg/dL (8.4-10.2); CARBON DIOXIDE 20 mmol/L (22-30); CHLORIDE 108 mmol/L (98-107); GLUCOSE 81 mg/dL (75-110); POTASSIUM 3.5 mmol/L (3.6-5.0); TOTAL PROTEIN 6.1 g/dL (6.3-8.2); URIC ACID 4.1 mg/dL (2.5-7.0)
[2019-06-19 17:14] LABS: APPEARANCE,URINE CLEAR; BILIRUBIN,URINE NEGATIVE (NEGATIVE); COLOR,URINE STRAW; GLUCOSE, URINE NEGATIVE (NEGATIVE); KETONES,URINE NEGATIVE (NEGATIVE); LEUKOCYTE ESTERASE,URINE NEGATIVE (NEGATIVE); NITRITE,URINE NEGATIVE (NEGATIVE); PROTEIN,URINE NEGATIVE (NEGATIVE); URINE SPECIFIC GRAVITY 1.004; UROBILINOGEN,URINE NEGATIVE mg/dL (<2.0)
[2019-06-19 17:32] LABS: URINE CREATININE 20.1 mg/dL (16-327); URINE PROTEIN 19.3 mg/dL (<12)
[2019-06-19 18:01] LABS: URINE AMPHETAMINES SCREEN NEGATIVE; URINE BARBITURATES SCREEN NEGATIVE; URINE BENZODIAZEPINES SCREEN NEGATIVE; URINE COCAINE SCREEN NEGATIVE; URINE MARIJUANA (THC) SCREEN NEGATIVE; URINE METHADONE SCREEN NEGATIVE; URINE PHENCYCLIDINE SCREEN NEGATIVE
--- NOTE | 2019-06-19 18:16 | Non Stress Test Report ---
Non Stress Test Datetime Report Generated by CPN: 06/19/2019 18:16 DEMOGRAPHIC EGA NST: 35.1 INDICATION Indication for Study (NST) Other: headache pre-e work up MONITORING Monitor Explained: Monitor Explained; Test Explained; Patient Verbalized Understanding Time on Monitor: 06/19/2019 15:12 NST INTERVENTIONS NST Interventions: PO Hydration Physician Notified NST: Latoya CNM BABY A Movement : Present Contraction Frequency : 2-10 ( pt states this is tightening not contractions per her per FHR Baseline : 120 Accelerations : 15X15 Decelerations : None Variability : Moderate 6-25bpm NST Review: Meets Criteria for Reactive NST NST Review and Verified By : Sima Camp RNC NST Results: Reactive NST REPORT Report Trigger: Send Report
--- NOTE | 2019-06-19 18:20 | RADIOLOGY REPORT (SQ) ---
EXAM DESCRIPTION: U/S RETROPERITON (RENAL/AORTA) COMPLETED DATE/TIME: 06/19/2019 5:08 pm REASON FOR STUDY: left sided flank pain, 34 wks , hx pyelo COMPARISON: 05/16/2019 TECHNIQUE: Dynamic and static grayscale images acquired of the kidneys and bladder and recorded on P ACS. Additional selected color Doppler and spectral images recorded. LIMITATIONS: None. FINDINGS: RIGHT KIDNEY: Normal size, 11.9 cm. Normal echogenicity. No solid or suspicious masses. M ild pelviectasis. No calcifications. LEFT KIDNEY: Normal size, 11.7 cm. Normal echogenicity. No solid or suspicious masses. No hydronephr osis. No calcifications. BLADDER: Left ureteral jet is seen. Right ureteral jet is not seen. No bladder mass OTHER FINDINGS: heart motion was seen at a rate of 135. IMPRESSION: Mild pelviectasis on the right. No true hydronephrosis. TECHNICAL DOCUMENTATION: JOB ID: [id number] [employer]- All Rights Reserved Reading location - IP/workstation name: [email or web address]
[2019-06-20 20:17] LABS: URINE PROTEIN 19.4 mg/dL (<12)
[2019-06-20 20:20] LABS: 24 HOUR URINE PROTEIN RESULT 601 mg/day (42-225)
== END 2019-06-19 18:10 | disposition home or self-care (01) ==
LOC: LC 15:02
PROVIDERS: ATTEND Obstetrics & Gynecology
PROC: 4A1HXCZ Monitoring of Products of Conception, Cardiac Rate, External Approach (ICD-10-PCS; principal; 2019-06-19)
DX: O13.3 Gestational [pregnancy-induced] hypertension without significant proteinuria, third trimester (principal); O09.523 Supervision of elderly multigravida, third trimester; Z3A.34 34 weeks gestation of pregnancy
CPT/HCPCS: 59025; 36415; 84156; 84550; 82570; 85027; 80053; 81001; 80307; 76770; J3490

== ENCOUNTER 2019-06-23 15:35 | Outpatient (CLI) | payer MEDICAID ==
--- NOTE | 2019-06-23 17:03 | Non Stress Test Report ---
Non Stress Test Datetime Report Generated by CPN: 06/23/2019 17:03 DEMOGRAPHIC EGA NST: 35.5 INDICATION Indication for Study (NST) Other: AMA MONITORING Monitor Explained: Monitor Explained; Test Explained; Patient Verbalized Understanding Time on Monitor: 06/23/2019 15:50 Time off Monitor: 06/23/2019 17:01 NST Duration: 71 NST INTERVENTIONS NST Interventions: PO Hydration; Reposition Patient Physician Notified NST: K Sosa CNM BABY A: [id number] BABY A Movement : Present Contraction Frequency : 0 FHR Baseline : 140 Accelerations : 15X15 Decelerations : None Variability : Moderate 6-25bpm NST Review: Meets Criteria for Reactive NST NST Review and Verified By : Todd Loera RN NST Results: Reactive NST REPORT Report Trigger: Send Report
== END 2019-06-23 17:09 | disposition home or self-care (01) ==
LOC: LC 15:35
PROVIDERS: ATTEND Obstetrics & Gynecology
PROC: 4A1HXCZ Monitoring of Products of Conception, Cardiac Rate, External Approach (ICD-10-PCS; principal; 2019-06-23)
DX: Z34.93 Encounter for supervision of normal pregnancy, unspecified, third trimester (principal); Z3A.35 35 weeks gestation of pregnancy
CPT/HCPCS: 59025

== ENCOUNTER 2019-07-10 12:33 | Inpatient (IN) | payer MEDICAID ==
[2019-07-10] MEDS ORDERED: GLUCAGON,HUMAN RECOMB 1 MG INJ SUBCUT PRN (12:47)
[2019-07-10] MEDS ORDERED: DEXTROSE 50%-WATER 25 GM/50 ML DISP.SYRIN IV PRN ×2 (12:47)
[2019-07-10] MEDS ORDERED: DEXTROSE 40% GEL 15 GM TUBE PO PRN ×2 (12:47)
[2019-07-10] MEDS ORDERED: RINGERS SOLUTION,LACTATED 1,000 ML IV ONE (12:51)
[2019-07-10] MEDS ORDERED: RINGERS SOLUTION,LACTATED 1,000 ML IV PRN ×2 (12:51→15:08)
[2019-07-10] MEDS ORDERED: CITRIC ACID/SODIUM CITRATE ORAL SOLN 15 ML UDCUP PO PRN (12:56)
[2019-07-10] MEDS ORDERED: CEFAZOLIN INJ 1 GM VIAL ONE (13:28)
[2019-07-10] MEDS ORDERED: CITRIC ACID/SODIUM CITRATE ORAL SOLN 15 ML UDCUP ONE (13:29)
[2019-07-10 13:35] LABS: ABSOLUTE LYMPHOCYTES (AUTO) 2.9 10^3/uL (0.5-4.7); ABSOLUTE MONOCYTES (AUTO) 0.5 10^3/uL (0.1-1.4); ABSOLUTE NEUT (AUTO) 6.7 10^3/uL (1.7-8.2); BASOPHILS % (AUTO) 0.5 % (0-2); EOSINOPHILS % (AUTO) 0.4 % (0-6); HEMOGLOBIN 9.7 g/dL (12.0-15.5); LYMPHOCYTES % (AUTO) 28.5 % (13-45); MEAN CORPUSCULAR HGB CONC 32.3 g/dL (32.0-36.0); MEAN CORPUSCULAR VOLUME 68 fl (80-97); MONOCYTES % (AUTO) 4.7 % (3-13); PLATELET COUNT 265 10^3/uL (150-450); RED BLOOD COUNT 4.41 10^6/uL (3.72-5.28); RED CELL DISTRIBUTION WIDTH 15.1 % (11.5-14.0); SEGMENTED NEUTROPHILS % (AUTO) 65.9 % (42-78); TOTAL CELLS COUNTED % (AUTO) 100 %; WHITE BLOOD COUNT 10.2 10^3/uL (4.0-10.5)
[2019-07-10] MEDS ORDERED: KETOROLAC TROMETHAMINE INJ/PF 30 MG/1 ML SDV ONE (13:45)
[2019-07-10] MEDS ORDERED: ONDANSETRON HCL INJ/PF 4 MG/2 ML SDV ONE (13:45)
[2019-07-10] MEDS ORDERED: PHENYLEPHRINE HCL INJ/PF 10 MG/1 ML SDV ONE (13:45)
[2019-07-10] MEDS ORDERED: ACETAMINOPHEN 1,000 MG/100 ML RTUPB IV ONE (13:45)
[2019-07-10] MEDS ORDERED: FENTANYL CITRATE INJ/PF 100 MCG/2 ML AMPUL ONE (13:45)
[2019-07-10] MEDS ORDERED: OXYTOCIN 10 UNIT/ML VIAL ONE (13:45)
[2019-07-10 13:56] LABS: ALBUMIN 3.1 g/dL (3.5-5.0); ALKALINE PHOSPHATASE 226 U/L (38-126); ANION GAP 9 (5-19); ASPARTATE AMINO TRANSFERASE 20 U/L (14-36); BILIRUBIN,DIRECT 0.1 mg/dL (0.0-0.4); BILIRUBIN,TOTAL 0.3 mg/dL (0.2-1.3); CALCIUM 8.6 mg/dL (8.4-10.2); CARBON DIOXIDE 21 mmol/L (22-30); CHLORIDE 108 mmol/L (98-107); GLUCOSE 83 mg/dL (75-110); POTASSIUM 3.7 mmol/L (3.6-5.0); TOTAL PROTEIN 6.3 g/dL (6.3-8.2); URIC ACID 4.9 mg/dL (2.5-7.0)
[2019-07-10 13:58] LABS: BLOOD UREA NITROGEN < 2 mg/dL (7-20)
[2019-07-10] MEDS ORDERED: CEFAZOLIN INJ 1 GM VIAL IV SCH ×2 (14:00)
[2019-07-10] MEDS ORDERED: OXYCODONE-ACETAMINOPHEN 5-325 MG TABLET PO PRN (15:08)
[2019-07-10] MEDS ORDERED: MEASLES,MUMPS&RUBELLA VACC/PF 0.5 ML VIAL SUBCUT PRN (15:08)
[2019-07-10] MEDS ORDERED: OXYTOCIN/NORMAL SALINE 20 UNIT/1,000 ML RTUINJ IV PRN (15:08)
[2019-07-10] MEDS ORDERED: ACETAMINOPHEN 325 MG TABLET PO PRN (15:08)
[2019-07-10] MEDS ORDERED: PROMETHAZINE HCL INJ 25 MG/1 ML VIAL IV PRN (15:08)
[2019-07-10] MEDS ORDERED: SIMETHICONE 80 MG TAB.CHEW PO PRN (15:08)
[2019-07-10] MEDS ORDERED: ACETAMINOPHEN 1,000 MG/100 ML RTUPB IV PRN (15:08)
[2019-07-10] MEDS ORDERED: DIPH/PERTUSS(ACELL)/TETANUS VAC/PF 0.5 ML SYR (>=10YO) IM PRN (15:08)
--- NOTE | 2019-07-10 15:16 | Operative Report ---
Operative Report DATE OF SURGERY: 07/10/19 PREOPERATIVE DIAGNOSIS: Preeclampsia at 38 weeks, desires repeat to p revent risk of uterine rupture POSTOPERATIVE DIAGNOSIS: Same OPERATION: Repeat via low transverse uterine incision SURGEON: BOBBY UMAÑA ANESTHESIA: Spinal TISSUE REMOVED OR ALTERED: Placenta COMPLICATIONS: None ESTIMATED BLOOD LOSS: 250 cc INTRAOPERATIVE FINDINGS: Viable female , normal uterus tubes ovaries PROCEDURE: Patient was taken to the OR and placed in supine position after her spinal anesthesia. She is prepared and draped in sterile fashion. Shaffer was placed for drainage of the bladder. Low transverse incision was made and carried down the level of the fascia. The fascial incision was made with knife and extended bilaterally with curved Rodriguez scissors. The fascia was off the rectus muscles using sharp and blunt dissection. The rectus muscles are in the midline. The peritoneum was entered without incident. Bladder blade was placed in uterine segment was identified. A low transverse incision was made creating a bladder flap. Bladder blade was placed low transverse uterine incision was made with the knife and extended with fingertips. The baby was delivered with some fundal pressure. Mouth and nose were suctioned free. The cord is doubly clamped and cut. Baby is passed off to the pantry chef in attendance. The placenta was manually extracted with trailing membranes. The uterus was externalized wrapped in a moist lap sponge. Uterine contents wiped free. Uterus was closed with a running locking layer of 0 chromic suture using the second layer to imbricate the first completing a double layer closure of the uterus. The serosa was closed with a running 2-0 chromic stitch. The pelvis was irrigated and suctioned free of fluid the uterus was replaced in the abdomen. The abdominal wall peritoneum was closed with running 2-0 chromic stitch. Fascia was closed with a running 0 Vicryl in 2 segments. Shantell's layer was brought together with 0 plain gut stitch and the skin was closed with running subcuticular 4-0 undyed Vicryl stitch. The wound was dressed mother and baby did well.
[2019-07-10] MEDS ORDERED: DIPHENHYDRAMINE HCL 50 MG/ML VIAL ONE ×2 (15:46→16:34)
[2019-07-10] MEDS ORDERED: OXYTOCIN/NORMAL SALINE 20 UNIT/1,000 ML RTUINJ ONE ×2 (15:46→15:50)
[2019-07-10] MEDS ORDERED: HYDROMORPHONE HCL INJ/PF 2 MG/ML AMPULE ONE (16:21)
[2019-07-10] MEDS: HYDROMORPHONE HCL INJ/PF 2 MG/ML AMPULE IV PRN (16:22)
[2019-07-10] MEDS: OXYCODONE-ACETAMINOPHEN 5-325 MG TABLET PO PRN (17:42)
[2019-07-10] MEDS: DOCUSATE SODIUM 100 MG CAPSULE PO SCH (17:45)
--- NOTE | 2019-07-10 18:44 | Delivery Summary ---
Del Sum A-C Datetime Report Generated by CPN: 07/10/2019 18:43 DELIVERY PERSONNEL DELIVERY PERSONNEL: [id number] Delivery Doctor:: Sherine Virk MD Anesthesiologist:: Len Christopher MD CRESTER:: Gemma Sapin, CRESTER Mini Shifter:: Iain Burnett, RN Branner Machine Tender/HYSTER MACHINE OPERATOR: Ann Mahmood, ST Branner Machine Tender/HYSTER MACHINE OPERATOR: Lou Whatley, WORD PROCESSOR TECHNICIAN MATERNAL INFORMATION Delivery Anesthesia: None Meds After Delivery Comment: see anesthesia record Delivery QBL: 379 Maternal Complications: None Complication Details: repeat c/s for preeclampsia LABOR SUMMARY EDC: 07/23/2019 00:00 No. Babies in Womb: 1 Attempted: No Labor Anesthesia: None LABOR INFORMATION Reason for Induction: Not Applicable Oxytocin: N/A Group B Beta Strep: positive Antibiotics # of Doses: 1 Antibiotics Time of Last Dose: 1335 Name of Antibiotic Given: Ancef Steroids Given: None Reason Steroids Not Administered: Not Applicable MEMBRANES Membranes Rupture Method: Artificial Rupture of Membranes: 07/10/2019 14:34 Length of Rupture (hr): 0.02 Amniotic Fluid Amount: Copious Amniotic Fluid Odor: Normal STAGES OF LABOR Stage 3 hr: 0 Stage 3 min: 0 VAGINAL DELIVERY Episiotomy: None Laceration #1: None Laceration Extension #1: N/A Sponge Count Correct: N/A Sharps Count Correct: N/A CSECTION DELIVERY Primary Indication: Repeat Elective Secondary Indication: Other Other Secondary Indication: preeclampsia CSection Urgency: Non-Scheduled CSection Incidence: Repeat Labor: No Labor Elective: Elective CSection Incision: Lower Uterine Transverse BABY A INFORMATION Infant Delivery Date/Time: 07/10/2019 14:35 Method of Delivery: Born in Route : No : N/A Forceps: N/A Vacuum Extraction: N/A Shoulder Dystocia : No PRESENTATION/POSITION BABY A Presentation: Cephalic Cephalic Presentation: Vertex PLACENTA INFORMATION BABY A Placenta Delivery Time : 07/10/2019 14:35 Placenta Method of Delivery: Manual Removal Placenta Status: Delivered SCORES BABY A Heart Rate 1 min: >100 bpm Resp Effort 1 min: Good Cry Reflex Irritability 1 min: Cough or Sneeze or Pulls Away Muscle Tone 1 min: Active Motion Color 1 min: Body [place], Extremities Blue Resuscitation Effort 1 min: Tactile Stimulation SCORE 1 MIN: 9 Heart Rate 5 min: >100 bpm Resp Effort 5 min: Good Cry Reflex Irritability 5 min: Cough or Sneeze or Pulls Away Muscle Tone 5 min: Active Motion Color 5 min: Body [place], Extremities Blue Resuscitation Effort 5 min: Tactile Stimulation; PPV/NCPAP SCORE 5 MIN: 9 INFANT INFORMATION BABY A Gestational Age at Delivery: 38.1 Gestational Status: Early Term- 37- 38.6 Weeks Outcome : Liveborn Condition : Stable Infant Sex: Female WEIGHT/LENGTH BABY A Infant Birthweight (gm): 3140 Infant Weight (lb): 6 Weight (oz): 15 Infant Length (in): 20.50 Length (cm): 52.07 CORD INFORMATION BABY A No. Cord Vessels: 3 Nuchal Cord : N/A Cord Blood Taken: Yes-For Storage (Mom's Blood type +) Infant Suction: None ASSESSMENT BABY A Skin to Skin: Yes (Annotations: < 5 min) Skin to Skin Time (min): 5 BABY B INFORMATION : N/A SIGNATURES : I personally evaluated and examined the patient in conjunction with the MLP and agree with the assessment, treatment plan and disposition.
[2019-07-10] MEDS ORDERED: CEFAZOLIN 1 GM/D5W RTU 50 ML IV SCH (20:53)
[2019-07-10] MEDS: KETOROLAC TROMETHAMINE INJ/PF 30 MG/1 ML SDV IV SCH (21:31)
[2019-07-11] MEDS: OXYCODONE-ACETAMINOPHEN 5-325 MG TABLET PO PRN ×4 (00:45→19:05)
[2019-07-11] MEDS: HYDROMORPHONE HCL INJ/PF 2 MG/ML AMPULE IV PRN (04:22)
[2019-07-11] MEDS: KETOROLAC TROMETHAMINE INJ/PF 30 MG/1 ML SDV IV SCH (05:57)
[2019-07-11 06:34] LABS: HEMATOCRIT 25.6 % (36.0-47.0); HEMOGLOBIN 8.3 g/dL (12.0-15.5); MEAN CORPUSCULAR HEMOGLOBIN 21.9 pg (27.0-33.4); MEAN CORPUSCULAR HGB CONC 32.3 g/dL (32.0-36.0); MEAN CORPUSCULAR VOLUME 68 fl (80-97); PLATELET COUNT 235 10^3/uL (150-450); RED BLOOD COUNT 3.77 10^6/uL (3.72-5.28); RED CELL DISTRIBUTION WIDTH 15.3 % (11.5-14.0); WHITE BLOOD COUNT 13.8 10^3/uL (4.0-10.5)
[2019-07-11] MEDS: PRENATAL VITAMIN W DHA CAPSULE PO SCH (09:35)
[2019-07-11] MEDS: DOCUSATE SODIUM 100 MG CAPSULE PO SCH ×2 (09:35→19:05)
--- NOTE | 2019-07-11 10:00 | PDOC PROGRESS REPORT ---
Subjective-OB Progress Note for:: 07/11/19 Subjective: Pt doing well, has been oob to void since FC removal, reports 300ml urine, light bleeding. Ate breakfast, no flatus. No concerns. Physical Exam (OB) Vital Signs: Temp Pulse Resp BP Pulse Ox 98.1 F 65 12 122/77 99 07/11/19 03:17 07/11/19 03:17 07/11/19 03:17 07/11/19 03:17 07/11/19 03:17 Intake & Output 07/10/19 07/11/19 07/12/19 06:59 06:59 06:59 Intake Total 720 Output Total 2200 Balance -1480 Weight 77.7 kg - PIH/Pre-Eclampsia Headache: Absent Epigastric Pain: No Visual Changes: No - Dressing Removed: No Incision: Dressing - Lochia Lochia Amount: Small 10-25 ml Lochia Color: Rubra/Red - Abdomen Description: Tender, Soft Hernia Present: No Fundal Description: Midline Fundal Height: u/u - u/2 Objective-Diagnostic Laboratory: 07/11/19 06:17 07/10/19 13:07 07/10/19 07/10/19 07/10/19 13:07 13:07 13:07 WBC 10.2 RBC 4.41 Hgb 9.7 L Hct 30.0 L MCV 68 L MCH 22.0 L MCHC 32.3 RDW 15.1 H Plt Count 265 Seg Neutrophils % 65.9 Sodium 138.0 Potassium 3.7 Chloride 108 H Carbon Dioxide 21 L Anion Gap 9 BUN < 2 L Creatinine 0.54 Est GFR ( Amer) > 60 Glucose 83 Uric Acid 4.9 Calcium 8.6 Total Bilirubin 0.3 AST 20 Alkaline Phosphatase 226 H Total Protein 6.3 Albumin 3.1 L Blood Type A POSITIVE Antibody Screen NEGATIVE 07/11/19 06:17 WBC 13.8 H RBC 3.77 Hgb 8.3 L Hct 25.6 L MCV 68 L MCH 21.9 L MCHC 32.3 RDW 15.3 H Plt Count 235 Seg Neutrophils % Sodium Potassium Chloride Carbon Dioxide Anion Gap BUN Creatinine Est GFR ( Amer) Glucose Uric Acid Calcium Total Bilirubin AST Alkaline Phosphatase Total Protein Albumin Blood Type Antibody Screen Assessment and Plan(PN) - Assessment and Plan (1) S/P repeat low transverse Is this a current diagnosis for this admission?: Yes - Time Spent with Patient Time with patient: Less than 15 minutes Medications reviewed and adjusted accordingly: Yes - Disposition Anticipated Discharge: Home Within: within 24 hours
[2019-07-11] MEDS ORDERED: IBUPROFEN 600 MG TABLET PO SCH (12:00)
[2019-07-11] MEDS: IBUPROFEN 600 MG TABLET PO SCH ×2 (14:36→20:18)
[2019-07-11 22:03] LABS: URINE AMPHETAMINES SCREEN NEGATIVE; URINE BENZODIAZEPINES SCREEN NEGATIVE; URINE COCAINE SCREEN NEGATIVE; URINE MARIJUANA (THC) SCREEN NEGATIVE; URINE METHADONE SCREEN NEGATIVE; URINE PHENCYCLIDINE SCREEN NEGATIVE
[2019-07-11 23:12] LABS: URINE BARBITURATES SCREEN UNCONFIRMED POSITIVE
[2019-07-12] MEDS: HYDROMORPHONE HCL INJ/PF 2 MG/ML AMPULE IV PRN (00:57)
[2019-07-12] MEDS: IBUPROFEN 600 MG TABLET PO SCH ×4 (03:42→20:57)
[2019-07-12] MEDS: DOCUSATE SODIUM 100 MG CAPSULE PO SCH ×2 (10:06→18:41)
[2019-07-12] MEDS: PRENATAL VITAMIN W DHA CAPSULE PO SCH (10:06)
[2019-07-12] MEDS: OXYCODONE-ACETAMINOPHEN 5-325 MG TABLET PO PRN ×3 (10:09→20:58)
--- NOTE | 2019-07-12 11:40 | PDOC PROGRESS REPORT ---
Subjective-OB Progress Note for:: 07/12/19 Subjective: Pt doing well, ambulatory. Baby is not going home today. Pt reports light bleeding , reg diet and +flatus. Physical Exam (OB) Vital Signs: Temp Pulse Resp BP Pulse Ox 98.2 F 68 18 149/85 H 100 07/12/19 11:00 07/12/19 11:00 07/12/19 11:00 07/12/19 11:00 07/12/19 11:00 Intake & Output 07/11/19 07/12/19 07/13/19 06:59 06:59 06:59 Intake Total 720 900 Output Total 2200 Balance -1480 900 Weight 77.7 kg - PIH/Pre-Eclampsia DTR's: 2 + Clonus: Negative Headache: Absent Epigastric Pain: No Visual Changes: No - Dressing Removed: No - opsite with small shadow drainage, intact Incision: Dressing Closure Type: Opsite - Lochia Lochia Amount: Scant < 10 ml Lochia Color: Rubra/Red - Abdomen Description: Soft, Round Hernia Present: No Fundal Description: Firm, Midline Fundal Height: u/u - u/2 Objective-Diagnostic Laboratory: 07/11/19 06:17 07/10/19 13:07 Assessment and Plan(PN) - Assessment and Plan (1) S/P repeat low transverse Is this a current diagnosis for this admission?: Yes - Time Spent with Patient Time with patient: Less than 15 minutes Medications reviewed and adjusted accordingly: Yes - Disposition Anticipated Discharge: Home Within: within 24 hours
[2019-07-13] MEDS: IBUPROFEN 600 MG TABLET PO SCH ×2 (02:46→08:54)
[2019-07-13] MEDS: OXYCODONE-ACETAMINOPHEN 5-325 MG TABLET PO PRN ×2 (02:47→08:55)
[2019-07-13 08:17] VITALS: BP 149/85
--- NOTE | 2019-07-13 09:53 | PDOC DISCHARGE SUMMARY ---
Impression - Admit/DC Date/PCP Admission Date/Primary Care Provider: 07/10/19 12:33 MARTI LORENZO MD Discharge Date: 07/13/19 - Discharge Diagnosis (1) S/P repeat low transverse Is this a current diagnosis for this admission?: Yes - Additional Information Resuscitation Status: Full Code Discharge Diet: Regular Discharge Activity: Balance Activity w/Rest, No Lifting Over 10 Pounds, No Lifting/Push/Pulling, Pelvic Rest, Walk Frequently Referrals: MARTI LORENZO MD [Primary Care Provider] - Prescriptions: Oxycodone HCl/Acetaminophen [Percocet 5-325 mg Tablet] 1 tab PO Q4HP PRN #30 tablet PRN Reason: Ibuprofen [Motrin 800 mg Tablet] 800 mg PO Q8HP PRN #60 tablet PRN Reason: Home Medications: Escitalopram Oxalate [Lexapro] 20 mg PO QHS 04/30/19 No122/Iron/Folic Acid [ Multi Tablet] 1 each PO DAILY 06/19/19 Ibuprofen [Motrin 800 mg Tablet] 800 mg PO Q8HP PRN #60 tablet 07/13/19 Oxycodone HCl/Acetaminophen [Percocet 5-325 mg Tablet] 1 tab PO Q4HP PRN #30 tablet 07/13/19 Results Laboratory Results: WBC 13.8 10^3/uL (4.0-10.5) H 07/11/19 06:17 RBC 3.77 10^6/uL (3.72-5.28) 07/11/19 06:17 Hgb 8.3 g/dL (12.0-15.5) L 07/11/19 06:17 Hct 25.6 % (36.0-47.0) L 07/11/19 06:17 MCV 68 fl (80-97) L 07/11/19 06:17 MCH 21.9 pg (27.0-33.4) L 07/11/19 06:17 MCHC 32.3 g/dL (32.0-36.0) 07/11/19 06:17 RDW 15.3 % (11.5-14.0) H 07/11/19 06:17 Plt Count 235 10^3/uL (150-450) 07/11/19 06:17 Lymph % (Auto) 28.5 % (13-45) 07/10/19 13:07 Harmon % (Auto) 4.7 % (3-13) 07/10/19 13:07 Eos % (Auto) 0.4 % (0-6) 07/10/19 13:07 Baso % (Auto) 0.5 % (0-2) 07/10/19 13:07 Absolute Neuts (auto) 6.7 10^3/uL (1.7-8.2) 07/10/19 13:07 Absolute Lymphs (auto) 2.9 10^3/uL (0.5-4.7) 07/10/19 13:07 Absolute Monos (auto) 0.5 10^3/uL (0.1-1.4) 07/10/19 13:07 Absolute Eos (auto) 0.0 10^3/uL (0.0-0.6) 07/10/19 13:07 Absolute Basos (auto) 0.0 10^3/uL (0.0-0.2) 07/10/19 13:07 Seg Neutrophils % 65.9 % (42-78) 07/10/19 13:07 Sodium 138.0 mmol/L (137-145) 07/10/19 13:07 Potassium 3.7 mmol/L (3.6-5.0) 07/10/19 13:07 Chloride 108 mmol/L (98-107) H 07/10/19 13:07 Carbon Dioxide 21 mmol/L (22-30) L 07/10/19 13:07 Anion Gap 9 (5-19) 07/10/19 13:07 BUN < 2 mg/dL (7-20) L 07/10/19 13:07 Creatinine 0.54 mg/dL (0.52-1.25) 07/10/19 13:07 Est GFR ( Amer) > 60 (>60) 07/10/19 13:07 Est GFR (MDRD) Non-Af > 60 (>60) 07/10/19 13:07 Glucose 83 mg/dL (75-110) 07/10/19 13:07 Uric Acid 4.9 mg/dL (2.5-7.0) 07/10/19 13:07 Calcium 8.6 mg/dL (8.4-10.2) 07/10/19 13:07 Total Bilirubin 0.3 mg/dL (0.2-1.3) 07/10/19 13:07 Direct Bilirubin 0.1 mg/dL (0.0-0.4) 07/10/19 13:07 Neonat Total Bilirubin Not Reportable 07/10/19 13:07 Neonat Direct Bilirubin Not Reportable 07/10/19 13:07 Neonat Indirect Bili Not Reportable 07/10/19 13:07 AST 20 U/L (14-36) 07/10/19 13:07 ALT 12 U/L (<35) 07/10/19 13:07 Alkaline Phosphatase 226 U/L (38-126) H 07/10/19 13:07 Lactate Dehydrogenase 218 U/L (120-246) 07/10/19 13:07 Total Protein 6.3 g/dL (6.3-8.2) 07/10/19 13:07 Albumin 3.1 g/dL (3.5-5.0) L 07/10/19 13:07 Urine Opiates Screen UNCONFIRMED POSITIVE 07/11/19 21:30 Urine Methadone Screen NEGATIVE 07/11/19 21:30 Ur Barbiturates Screen UNCONFIRMED POSITIVE 07/11/19 21:30 Ur Phencyclidine Scrn NEGATIVE 07/11/19 21:30 Ur Amphetamines Screen NEGATIVE 07/11/19 21:30 U Benzodiazepines Scrn NEGATIVE 07/11/19 21:30 Urine Cocaine Screen NEGATIVE 07/11/19 21:30 U Marijuana (THC) Screen NEGATIVE 07/11/19 21:30 RPR NONREACTIVE (NONREACTIVE) 07/10/19 13:07 Blood Type A POSITIVE 07/10/19 13:07 Antibody Screen NEGATIVE 07/10/19 13:07
[2019-07-13] MEDS: DOCUSATE SODIUM 100 MG CAPSULE PO SCH (10:12)
[2019-07-13] MEDS: PRENATAL VITAMIN W DHA CAPSULE PO SCH (10:12)
--- NOTE | 2019-07-15 14:12 | Admission Physical ---
Datetime Report Generated by CPN: 07/15/2019 14:12 CURRENT ADMISSION Chief Complaint: Scheduled Section; Other Chief Complaint: Other Chief Complaint: Illness Chief Complaint Other: Direct admit for repeat c/s sec pre-eclampsia at 38w 1 d Chief Complaint Other: Nausea and vomitting Indication for Induction: Not Applicable Indication for Induction: Not Applicable Admit Impression : Term, Intrauterine ; No Active Labor Admit Impression : , Intrauterine ; Observation/Evaluation Admit Impression- Other: elevated WBC, hematuria, suspected Pyelonephritis. +THC. Admit Plan: Admit to Unit; Initiate Section Protocol Admit Plan: Observation/Evaluation Admit Plan: Admit to Unit; Observation/Evaluation Admit Plan- Other: Obs status for IV antibiotics Admit Plan- Other: antiemetics, iv fluids and antipyretics ALLERGIES Medication Allergies: No Medication Allergies: No Known Allergies (06/23/2019) Medication Allergies: No Known Allergies (06/19/2019) Medication Allergies: No Known Allergies (03/25/2019) Latex: No Latex Allergies Food Allergies: None Environmental Allergies: None OBSTETRICAL HISTORY EDC: 07/23/2019 00:00 : 5 Para: 4 Term: 4 : 0 SAB: 0 IAB: 0 Ectopic: 0 Livin Cesareans: 2 VBACs: 0 Multiple Births: 0 Gestational Diabetes: No Rh Sensitization: No Incompetent Cervix: No RIKI: No Infertility: No ART Treatment: No Uterine Anomaly: No IUGR: No Hx Previous C/S: Yes Macrosomia: No Hx Loss/Stillborn: No PIH: No Hx : No Placenta Previa/Abruption: No Depression/PP Depression: Yes PTL/PROM: No Post Hemorrhage: No Current Procedures: Ultrasound Obstetrical History Comments: G1- 1999 at 38 weeks, 5lbs 11oz female G2- 2003 at 40 weeks, 8lbs 10oz female GDM G3- 2011 at 37 weeks, 6lbs 8oz male, placenta previa G4- 2016 C-sections at 38 weeks, 6lbs 13oz male G5- current SEE RECORDS Alcohol: No Marijuana : No Cocaine: No Other Illicit Drugs: No Cigarettes: Never Smoker. 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 Heart Disease: No Hosp/Surgery: No Autoimmune Disorder: No Anesthetic Complications: No Kidney Disease: No Abnormal Pap Smear: No Neuro/Epilepsy: No Psychiatric Disorders: No Other Medical Diseases: No Hepatitis/Liver Disease: No Significant Family History: No Varicosities/Phlebitis: No Trauma/Violence : No Thyroid Dysfunction: No Medical History Comments: GDM with G2 in 2003 preeclampsia with G1 2000 INFECTIOUS HISTORY Gonorrhea: No Genital Herpes: No Chlamydia: Yes Tuberculosis: No Syphilis: No Hepatitis: No HIV/AIDS Exposure: No Rash or Viral Illness: No HPV: No PHYSICAL EXAM General: Normal General: Normal General: Normal HEENT: Normal HEENT: Normal HEENT: Normal Neurologic: Normal Neurologic: Normal Neurologic: Normal Thyroid: Deferred Thyroid: Normal Thyroid: Normal Heart: Normal Heart: Normal Heart: Normal Lungs: Normal Lungs: Normal Lungs: Normal Breast: Deferred Breast: Normal Breast: Normal Back: Normal Back: Abnormal Back: Normal Abdomen: Normal Abdomen: Normal Abdomen: Normal Genitourinary Exam: Deferred Genitourinary Exam: Normal Genitourinary Exam: Normal Extremities: Normal Extremities: Normal Extremities: Normal DTRs: Normal DTRs: Normal DTRs: Normal Pelvic Type: Not Done Pelvic Type: Adequate Pelvic Type: Adequate Physical Exam Comments: +Rt sided CVA tenderness on exam Vital Signs: Reviewed Vital Signs: Reviewed; Within Normal Limits MEMBRANES Membranes: Intact FETUS A EGA: 38.1 EGA: 33.6 EGA: 28.0 Monitoring: External US FHR- Baseline: 140 Variability: Moderate 6-25bpm Accelerations: 15X15 Decelerations: None Decelerations: None FHR Category: Category I Admit Comment: In process of being admitted for repeat c/s-not yet on EFM. First 2 ; last 2 c/s G3 placenta previa AMA Positive GBS test Chlamydia-treated w GEOVANY neg in Anemia-on ferrous sulfate Pos THC and opioids in 06/10/19 Mild Pre-eclampsia w 24 urine 601mg at 35 wks c/o OSUNA today, no visual changes records reviewed Plan: Admit and prep for repeat c/s Admit Comment: F5 P4 at 33+ wks, presents to L_D c/o increased nausea and vomitting. +THC this admission, pt does have Rx for Phenergan and Zofram at home, states they are not working. Labwork drawn, WBC noted to be 21.3. Pt denies fever, chills, malaise. After further converstation, pt is c/o of Rt sided flank pain as well. D/w Dr Virk and will give 1 gm IV Rocephin q 12 hours for at least 24 hours and repeat CBC w/ diff in the morning. Admit Comment: age appropriate NST PLANS FOR LABOR AND DELIVERY Labor and Delivery: None Pain Management: Epidural Feeding Preference: Both Benefit of Breast Feed Discussed: Yes INFORMED CONSENT Assignment: Sherine Virk MD Assignment: Sherine Virk MD : Sherine Virk MD Signature: with User ID: Los Signature: with User ID: Kaley Signature: with User ID: Bert : with User ID: Los : with User ID: Kaley : with User ID: Bert : I personally evaluated and examined the patient in conjunction with the MLP and agree with the assessment, treatment plan and disposition.
[2019-07-16] MEDS ORDERED: IBUPROFEN 800 MG TABLET PO SCH
== END 2019-07-13 12:00 | disposition home or self-care (01) | DRG 788 ==
LOC: LR 12:33 → 2S 17:00
PROVIDERS: ADMIT Obstetrics & Gynecology; ATTEND Obstetrics & Gynecology
PROC: 10D00Z1 Extraction of Products of Conception, Low, Open Approach (ICD-10-PCS; principal; 2019-07-10)
DX: O34.211 Maternal care for low transverse scar from previous cesarean delivery (principal); N85.8 Other specified noninflammatory disorders of uterus; O99.02 Anemia complicating childbirth; O14.04 Mild to moderate pre-eclampsia, complicating childbirth; Z3A.38 38 weeks gestation of pregnancy; Z37.0 Single live birth
CPT/HCPCS: 1961; 36415; 80053; 80307; 83615; 84550; 85025; 85027; 86592; 86850; 86900; 86901; 94799; J0131; J0690; J1170; J1200; J1885; J2370; J2405; J2590; J3010; J3490; J7120

== ENCOUNTER 2019-07-18 15:09 | Inpatient (IN) | payer MEDICAID ==
[2019-07-18] MEDS ORDERED: MAGNESIUM SULFATE 4 GM/100 ML RTUPB IV ONE ×2 (16:02→16:12)
[2019-07-18] MEDS ORDERED: HYDRALAZINE HCL INJ/PF 20 MG/1 ML SDV IV ONE (16:04)
[2019-07-18] MEDS ORDERED: MAGNESIUM SULFATE 20 GM/500 ML RTUINJ IV ONE (16:12)
[2019-07-18] MEDS ORDERED: HYDRALAZINE HCL INJ/PF 20 MG/1 ML SDV ONE (16:12)
[2019-07-18] MEDS: RINGERS SOLUTION,LACTATED 1,000 ML IV PRN (16:35)
[2019-07-18 16:52] LABS: HEMATOCRIT 29.8 % (36.0-47.0); HEMOGLOBIN 9.6 g/dL (12.0-15.5); MEAN CORPUSCULAR HEMOGLOBIN 21.9 pg (27.0-33.4); MEAN CORPUSCULAR HGB CONC 32.1 g/dL (32.0-36.0); MEAN CORPUSCULAR VOLUME 68 fl (80-97); PLATELET COUNT 431 10^3/uL (150-450); RED BLOOD COUNT 4.36 10^6/uL (3.72-5.28); RED CELL DISTRIBUTION WIDTH 15.6 % (11.5-14.0); WHITE BLOOD COUNT 9.3 10^3/uL (4.0-10.5)
[2019-07-18] MEDS: MAGNESIUM SULFATE 20 GM/500 ML RTUINJ IV PRN (16:59)
[2019-07-18 17:12] LABS: ALBUMIN 3.3 g/dL (3.5-5.0); ALKALINE PHOSPHATASE 138 U/L (38-126); ANION GAP 9 (5-19); ASPARTATE AMINO TRANSFERASE 23 U/L (14-36); BILIRUBIN,DIRECT 0.2 mg/dL (0.0-0.4); BILIRUBIN,TOTAL 0.2 mg/dL (0.2-1.3); BLOOD UREA NITROGEN 10 mg/dL (7-20); CALCIUM 9.2 mg/dL (8.4-10.2); CARBON DIOXIDE 27 mmol/L (22-30); CHLORIDE 104 mmol/L (98-107); GLUCOSE 86 mg/dL (75-110); POTASSIUM 3.6 mmol/L (3.6-5.0); TOTAL PROTEIN 6.4 g/dL (6.3-8.2); URIC ACID 5.4 mg/dL (2.5-7.0)
--- NOTE | 2019-07-18 18:31 | Admission Physical ---
Datetime Report Generated by CPN: 07/18/2019 18:30 CURRENT ADMISSION Chief Complaint: Scheduled Section; Other Chief Complaint Other: Headache and elevated BP Indication for Induction: Not Applicable Admit Impression : Term, Intrauterine ; No Active Labor Admit Impression- Other: s/p Repeat C/S; pre-eclampsia Admit Plan: Admit to Unit; Initiate Section Protocol Admit Plan- Other: MgS04 ALLERGIES Medication Allergies: No Medication Allergies: No Known Allergies (07/10/2019) Latex: No Latex Allergies Food Allergies: None Environmental Allergies: None OBSTETRICAL HISTORY EDC: 07/23/2019 00:00 : 5 Para: 4 Term: 4 : 0 SAB: 0 IAB: 0 Ectopic: 0 Livin Cesareans: 2 VBACs: 0 Multiple Births: 0 Gestational Diabetes: No Rh Sensitization: No Incompetent Cervix: No RIKI: No Infertility: No ART Treatment: No Uterine Anomaly: No IUGR: No Hx Previous C/S: Yes Macrosomia: No Hx Loss/Stillborn: No PIH: No Hx : No Placenta Previa/Abruption: No Depression/PP Depression: Yes PTL/PROM: No Post Hemorrhage: No Current Procedures: Ultrasound Obstetrical History Comments: G1- 1999 at 38 weeks, 5lbs 11oz female G2- 2003 at 40 weeks, 8lbs 10oz female GDM G3- 2011 at 37 weeks, 6lbs 8oz male, placenta previa G4- 2016 C-sections at 38 weeks, 6lbs 13oz male G5- current SEE RECORDS Alcohol: No Marijuana : No Cocaine: No Other Illicit Drugs: No Cigarettes: Never Smoker. 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 Heart Disease: No Hosp/Surgery: No Autoimmune Disorder: No Anesthetic Complications: No Kidney Disease: No Abnormal Pap Smear: No Neuro/Epilepsy: No Psychiatric Disorders: No Other Medical Diseases: No Hepatitis/Liver Disease: No Significant Family History: No Varicosities/Phlebitis: No Trauma/Violence : No Thyroid Dysfunction: No Medical History Comments: GDM with G2 in 2003 preeclampsia with G1 2000 INFECTIOUS HISTORY Gonorrhea: No Genital Herpes: No Chlamydia: Yes Tuberculosis: No Syphilis: No Hepatitis: No HIV/AIDS Exposure: No Rash or Viral Illness: No HPV: No PHYSICAL EXAM General: Normal HEENT: Normal Neurologic: Normal Thyroid: Normal Heart: Normal Lungs: Normal Breast: Normal Back: Normal Abdomen: Abnormal Genitourinary Exam: Normal Extremities: Normal DTRs: Abnormal Pelvic Type: Adequate Physical Exam Comments: incision: mildly erythematous and warm Mild clonus in the office Vital Signs: Reviewed Details Vital Signs: elevated BP MEMBRANES Membranes: Intact FETUS A EGA: 38.1 Monitoring: External US FHR- Baseline: 140 Variability: Moderate 6-25bpm Accelerations: 15X15 Decelerations: None FHR Category: Category I Admit Comment: This , who is POD#8 from Repeat C/S, presents to L_D for MgS04. She was seen in the office a few days ago with bilateral pedal edema and elevated BP. She was placed on Lasix and Labetalol. She was seen today c/o headache and BP still elevated. She underwent her C/S (1) week earlier than scheduled secondary to pre-eclampsia. Her incision is mildly erythematous and warm on the superior aspect. I will start antibiotics. PLANS FOR LABOR AND DELIVERY Labor and Delivery: None Pain Management: Epidural Feeding Preference: Both Benefit of Breast Feed Discussed: Yes INFORMED CONSENT Assignment: Sherine Virk MD Signature: with User ID: [email or web address] : with User ID: [email or web address] : I personally evaluated and examined the patient in conjunction with the MLP and agree with the assessment, treatment plan and disposition.
[2019-07-18] MEDS ORDERED: CEFAZOLIN INJ 1 GM VIAL ONE (19:20)
[2019-07-18] MEDS ORDERED: BUTALB/ACETAMINOPHEN/CAFFEINE 1 TAB EACH ONE (21:17)
[2019-07-18] MEDS: BUTALB/ACETAMINOPHEN/CAFFEINE 1 TAB EACH PO PRN (21:25)
[2019-07-19] MEDS ORDERED: PSEUDOEPHEDRINE HCL 30 MG TABLET PO ONE (00:30)
[2019-07-19] MEDS ORDERED: CEFAZOLIN INJ 1 GM VIAL ONE ×3 (01:22→12:58)
[2019-07-19] MEDS: CEFAZOLIN 1 GM/D5W RTU 1 GM/50 ML RTUPB IV SCH ×3 (01:33→13:15)
[2019-07-19] MEDS ORDERED: MAGNESIUM SULFATE 20 GM/500 ML RTUINJ IV ONE ×2 (02:26→12:59)
[2019-07-19] MEDS: MAGNESIUM SULFATE 20 GM/500 ML RTUINJ IV PRN ×2 (02:31→13:04)
[2019-07-19] MEDS: RINGERS SOLUTION,LACTATED 1,000 ML IV PRN (02:31)
[2019-07-19] MEDS ORDERED: BUTALB/ACETAMINOPHEN/CAFFEINE 1 TAB EACH ONE ×2 (06:59→12:58)
[2019-07-19] MEDS: BUTALB/ACETAMINOPHEN/CAFFEINE 1 TAB EACH PO PRN ×3 (07:27→20:42)
[2019-07-19] MEDS ORDERED: IRON SUCROSE COMPLEX INJ/PF 100 MG/5 ML SDV IV ONE (09:00)
[2019-07-19] MEDS ORDERED: IBUPROFEN 800 MG TABLET PO PRN (18:02)
[2019-07-19] MEDS ORDERED: CEFAZOLIN 2 GM/D5W RTU 2 GM/50 ML RTUPB IV ONE (18:38)
[2019-07-19] MEDS ORDERED: LABETALOL HCL 200 MG TABLET PO SCH (22:00)
[2019-07-20] MEDS: BUTALB/ACETAMINOPHEN/CAFFEINE 1 TAB EACH PO PRN (04:24)
--- NOTE | 2019-07-20 07:28 | PDOC DISCHARGE SUMMARY ---
Impression - Admit/DC Date/PCP Admission Date/Primary Care Provider: 07/18/19 15:09 BOBBY UMAÑA MD Discharge Date: 07/20/19 - Discharge Diagnosis (1) Opioid dependence Is this a current diagnosis for this admission?: Yes (2) Pre-eclampsia in third trimester Is this a current diagnosis for this admission?: Yes (3) S/P repeat low transverse Is this a current diagnosis for this admission?: Yes - Assessment Summary: admitted 9 days PP with PP pre eclampsia. Placed on mag sulfate x 24 hours. bps are stable but still slightly elevated. Headache mild and manageable with Fiorocet. Incision was slightly red and edematous on admission however, this has improved with IV antibiotics. - Additional Information Resuscitation Status: Full Code Discharge Diet: As Tolerated Discharge Activity: Balance Activity w/Rest, No Lifting Over 10 Pounds, No Lifting/Push/Pulling, Pelvic Rest, Walk Frequently Referrals: BOBBY UMAÑA MD [Primary Care Provider] - Prescriptions: Labetalol HCl [Normodyne 200 mg Tablet] 200 mg PO Q12 30 Days #60 tablet Home Medications: Escitalopram Oxalate [Lexapro] 20 mg PO QHS 04/30/19 Ibuprofen [Motrin 800 mg Tablet] 800 mg PO Q8HP PRN #60 tablet 07/13/19 Oxycodone HCl/Acetaminophen [Percocet 5-325 mg Tablet] 1 tab PO Q4HP PRN #30 tablet 07/13/19 Acetaminophen [Tylenol 325 mg Tablet] 650 mg PO Q4HP PRN 07/18/19 Butalb/Acetaminophen/Caffeine [Fioricet (50-325-40 mg) Tablet] 1 tab PO Q4HP PRN 07/18/19 Labetalol HCl 100 mg PO BID 07/18/19 Morphine Sulfate [Morphine Ir 15 mg Tablet] 1 tab PO TID 07/18/19 Oxycodone HCl/Acetaminophen [Percocet 5-325 mg Tablet] 1 - 2 tab PO ASDIR PRN 07/18/19 Labetalol HCl [Normodyne 200 mg Tablet] 200 mg PO Q12 30 Days #60 tablet 1 09/20/18 History of Present Illiness History of Present Illness: AKIL SMITH is a 38 year old female Physical Exam - Physical Exam Vital Signs: Temp Pulse Resp BP Pulse Ox 97.7 F 58 L 18 132/86 H 100 12/15/19 03:55 07/20/19 03:55 07/20/19 03:55 07/20/19 03:55 07/20/19 03:55 Intake & Output 07/19/19 07/20/19 07/21/19 06:59 06:59 06:59 Intake Total 1222 1700 Output Total 1280 Balance 1222 420 Weight 71.6 kg 73.6 kg Results Laboratory Results: WBC 9.3 10^3/uL (4.0-10.5) 07/18/19 16:38 RBC 4.36 10^6/uL (3.72-5.28) 07/18/19 16:38 Hgb 9.6 g/dL (12.0-15.5) L 07/18/19 16:38 Hct 29.8 % (36.0-47.0) L 07/18/19 16:38 MCV 68 fl (80-97) L 07/18/19 16:38 MCH 21.9 pg (27.0-33.4) L 07/18/19 16:38 MCHC 32.1 g/dL (32.0-36.0) 07/18/19 16:38 RDW 15.6 % (11.5-14.0) H 07/18/19 16:38 Plt Count 431 10^3/uL (150-450) 07/18/19 16:38 Sodium 139.9 mmol/L (137-145) 07/18/19 16:38 Potassium 3.6 mmol/L (3.6-5.0) 07/18/19 16:38 Chloride 104 mmol/L (98-107) 07/18/19 16:38 Carbon Dioxide 27 mmol/L (22-30) 07/18/19 16:38 Anion Gap 9 (5-19) 07/18/19 16:38 BUN 10 mg/dL (7-20) 07/18/19 16:38 Creatinine 0.64 mg/dL (0.52-1.25) 07/18/19 16:38 Est GFR ( Amer) > 60 (>60) 07/18/19 16:38 Est GFR (MDRD) Non-Af > 60 (>60) 07/18/19 16:38 Glucose 86 mg/dL (75-110) 07/18/19 16:38 Uric Acid 5.4 mg/dL (2.5-7.0) 07/18/19 16:38 Calcium 9.2 mg/dL (8.4-10.2) 07/18/19 16:38 Total Bilirubin 0.2 mg/dL (0.2-1.3) 07/18/19 16:38 Direct Bilirubin 0.2 mg/dL (0.0-0.4) 07/18/19 16:38 Neonat Total Bilirubin Not Reportable 07/18/19 16:38 Neonat Direct Bilirubin Not Reportable 07/18/19 16:38 Neonat Indirect Bili Not Reportable 07/18/19 16:38 AST 23 U/L (14-36) 07/18/19 16:38 ALT 13 U/L (<35) 07/18/19 16:38 Alkaline Phosphatase 138 U/L (38-126) H 07/18/19 16:38 Lactate Dehydrogenase 231 U/L (120-246) 07/18/19 16:38 Total Protein 6.4 g/dL (6.3-8.2) 07/18/19 16:38 Albumin 3.3 g/dL (3.5-5.0) L 07/18/19 16:38 Stroke Is this a Stroke Patient?: No Acute Heart Failure - Is this a Heart Failure Patient?: No
[2019-07-20 07:48] VITALS: BP 135/89
== END 2019-07-20 08:22 | disposition home or self-care (01) | DRG 776 ==
LOC: LR 15:09 → 2S 07-19 18:10
PROVIDERS: ADMIT Obstetrics & Gynecology; ATTEND Obstetrics & Gynecology
DX: O14.15 Severe pre-eclampsia, complicating the puerperium (principal); F11.20 Opioid dependence, uncomplicated; O99.323 Drug use complicating pregnancy, third trimester; Z79.899 Other long term (current) drug therapy
CPT/HCPCS: 36415; 80053; 83615; 84550; 85027; J0360; J0690; J1756; J3475; J3490